=== PATIENT | female | born 1950 ===

== ENCOUNTER 2023-02-28 14:18 | Inpatient (IN) | payer MEDICARE, SELFPAY ==
[2023-02-28 14:30] VITALS: BP 123/78; PULSE 72; TEMP 36.7; O2SAT 98
--- NOTE | 2023-02-28 18:40 | PC.ADMIT ---
pt is a 72 year old female who presented to [facility] with paranoia and delusions. pt has a PMH of anxiety, depressive disorder cataracts, hypothyroidism, corneal dystophy, Alzheimer disease,and IBS. during admission,pt signed a CV. pt began starting saying delusional statements, saying people are following her and people want to kill her. pt reported she should be . pt was unable to be redirected from those delusions and did not sign any other legals or answer many questions about her health. pt has been eating meals and is willing to take certain meds.pt is ambulating without help, but needs some help standing up. start treatment plan and promote safety.
--- NOTE | 2023-02-28 20:56 | P.CONHOSP_ITS ---
History of Present Illness Data of Consult Service Date: 02/28/23 Requesting physician: Johny Rice Primary Care Provider: Unknown Physician HPI Reason for consult: medical H&P 72-year-old female with history of hypertension, irritable bowel syndrome, hyperlipidemia, history of thyroid cancer s/p thyroidectomy with postoperative hypothyroidism, endothelial corneal dystrophy, and cataracts admitted to Psychiatry from [facility] with consult placed to hospitalist service for medical H and P. She has no complaints at this time but is asking for a sleep aid. She denies any alcohol use, cigarette smoking, or illicit drug use. Review of Systems Review of Systems: General: No fevers, malaise, unintentional weight loss HEENT: No blurred vision, diplopia. No sore throat, nasal congestion, rhinorrhea, sinus pain, ear pain Cardiovascular: No chest pain, palpitations, or leg edema Respiratory: No shortness of breath, wheezing, cough GI: No abdominal pain, nausea, vomiting, diarrhea, constipation, melena, hematochezia : No dysuria, hematuria, increased urinary frequency, decreased urinary output MSK: No myalgia, back pain Neuro: No headaches, weakness, paresthesias Skin: No rashes or lesions [facility] Medical History Cataracts, bilateral Endothelial corneal dystrophy History of thyroid cancer Hyperlipidemia Hypertension Irritable bowel syndrome Postoperative hypothyroidism Surgical History S/P thyroidectomy Social History Household Members: Family Housing: House Do you presently have visiting nurse or other home services: No Patient Tobacco Use Status: Never used Tobacco Use of substances other than those prescribed or required for medical reasons: No Have you been hit, kicked, punched, or otherwise hurt by someone within the past year? If so, by whom?: No Do you feel safe in your current relationship?: Yes Is there a partner from a previous relationship who is making you feel unsafe now?: No Are you made to feel afraid or neglected: Yes Advance Directives: No Advance Directives Information Provided: Yes Do you have thoughts of harming others: None Do you have a plan to hurt others: No Plan Recently lost weight without trying: No How much weight loss: Not applicable Eating poorly because of decreased appetite: No Nutrition screen score: 0 Nutrition Risks: No Nutritional Risk Patient : No : No Poor oral hygiene: No Meds Allergies Allergy/AdvReac Type Severity Reaction Status Date / Time No Known Allergies Allergy Verified 02/28/23 14:57 Active Medications: Current Medications Acetaminophen (Acetaminophen 325 Mg Tablet) 650 mg PO Q6H PRN PRN Reason: Headache/Pain Mild Scale (1-3) Al Hydroxide/Mg Hydroxide (Magnesium Hydrox/Alum Hydrox 30 Ml Oral.Susp) 30 ml PO Q6H PRN PRN Reason: Heartburn/Nausea Clonazepam (Clonazepam 0.5 Mg Tablet) 0.5 mg PO BID MANDO Hydrochlorothiazide (Hydrochlorothiazide 25 Mg Tablet) 25 mg PO DAILY [facility]; Protocol Hydroxyzine HCl (Hydroxyzine Hcl 25 Mg Tablet) 25 mg PO Q6H PRN PRN Reason: Anxiety Levothyroxine Sodium (Levothyroxine Sodium 112 Mcg Tablet) 112 mcg PO DAILY@0600 MANDO Magnesium Hydroxide (Milk Of Magnesia 30 Ml Oral.Susp) 30 ml PO DAILY PRN PRN Reason: Constipation Quetiapine Fumarate (Quetiapine Fumarate 100 Mg Tablet) 100 mg PO BEDTIME MANDO Sertraline HCl (Sertraline Hcl 100 Mg Tablet) 200 mg PO DAILY [facility] Trazodone HCl (Trazodone Hcl 50 Mg Tablet) 50 mg PO BEDTIME MRX1 PRN PRN Reason: Insomnia Valsartan (Valsartan 160 Mg Tablet) 160 mg PO DAILY [facility]; Protocol Vitamin D (Cholecalciferol (Vitamin D3) 25 Mcg Tablet) 25 mcg PO DAILY [facility] Home Medications Medication Instructions Recorded Confirmed Last Taken Type aripiprazole 5 mg tablet 5 mg PO BEDTIME 02/28/23 02/28/23 Unknown History bromfenac 0.07 % eye drops 1 drp ophthalmic (eye) DAILY 02/28/23 02/28/23 Unknown History (Prolensa) cholecalciferol (vitamin D3) 25 25 mcg PO DAILY 02/28/23 02/28/23 Unknown History mcg (1,000 unit) tablet (Vitamin D3) clonazepam 0.5 mg tablet (Klonopin) 0.5 mg PO BID 02/28/23 02/28/23 Unknown History hydrochlorothiazide 25 mg tablet 25 mg PO DAILY 02/28/23 02/28/23 Unknown History levothyroxine 112 mcg tablet 112 mcg PO DAILY 02/28/23 02/28/23 Unknown History lithium carbonate 300 mg 600 mg PO BEDTIME 02/28/23 02/28/23 Unknown History tablet,extended release meloxicam 15 mg tablet 15 mg PO DAILY 02/28/23 02/28/23 Unknown History moxifloxacin 0.5 % eye drops 1 drp ophthalmic-Right TID 02/28/23 02/28/23 Unknown History pravastatin 10 mg tablet 10 mg PO DAILY 02/28/23 02/28/23 Unknown History quetiapine 100 mg tablet 100 mg PO BEDTIME 02/28/23 02/28/23 Unknown History sertraline 100 mg tablet 150 mg PO DAILY 02/28/23 02/28/23 Unknown History sertraline 50 mg tablet 50 mg PO QAM 02/28/23 02/28/23 Unknown History trazodone 50 mg tablet 50 - 100 mg PO BEDTIME 02/28/23 02/28/23 Unknown History valsartan 160 1 tab PO DAILY 02/28/23 02/28/23 Unknown History mg-hydrochlorothiazide 25 mg tablet Physical Exam Vital Signs and Narrative: Vital Signs: Last Vital Signs Temp 98.1 F 02/28/23 14:30 Pulse 72 02/28/23 14:30 BP 123/78 02/28/23 14:30 Pulse Ox 98 02/28/23 14:30 O2 Del Method Room Air 02/28/23 14:30 Constitutional - Awake and Alert, No apparent distress Eyes - PERRLA, EOMI Cardiovascular - S1S2, RRR, No edema Respiratory - Normal lung expansion, Normal respiratory effort, No respiratory distress, CTA bilaterally Gastrointestinal - NT / ND; +BS; No rebound or guarding Extremities - no calf tenderness bilaterally, no swelling Skin - Warm/Dry Neurological - Alert & oriented x3, CN II-XII in tact, 5/5 strength BUE and BLE Psychological - Appropriate affect Assessment and Plan (1) Routine medical exam: Status: Acute Plan 72-year-old female with history of hypertension, irritable bowel syndrome, hyperlipidemia, history of thyroid cancer s/p thyroidectomy with postoperative hypothyroidism, endothelial corneal dystrophy, and cataracts admitted to Psychiatry from [facility] ED with consult placed to hospitalist service for medical H and P. #Mood disorder -plan per psychiatry #HTN -continue home meds # hyperlipidemia -continue statin # endothelial corneal dystrophy -continue eyedrops Reviewed chart from [facility]. Hematology studies, chemistries, urinalysis unremarkable Thank you for allowing me to participate in this consult. Signing off at this time. Please do not hesitate to call for further questions. Time Spent With Patient Time: Total time managing care of this patient today ____ minutes.
[2023-02-28] MEDS: QUEtiapine Fumarate 100 MG TABLET PO (21:18)
[2023-02-28] MEDS: clonazePAM 0.5 MG TABLET PO (21:18)
[2023-03-01] MEDS: Levothyroxine Sodium 112 MCG TABLET PO (06:02)
[2023-03-01 08:10] VITALS: BP 113/67; PULSE 79; RESP 20; TEMP 36.1; O2SAT 96
[2023-03-01] MEDS: Valsartan 160 MG TABLET PO (08:13)
[2023-03-01] MEDS: Cholecalciferol (Vitamin D3) 25 MCG TABLET PO (08:13)
[2023-03-01] MEDS: hydroCHLOROthiazide 25 MG TABLET PO (08:15)
[2023-03-01] MEDS: Sertraline HCL 100 MG TABLET 200 MG PO (08:16)
[2023-03-01 08:43] LABS: Alanine Aminotransferase 33 U/L (0-31); Albumin Level 4.2 g/dL (3.5-5.0); Alkaline Phosphatase 123 U/L (39-117); Anion Gap 11 (12-20); Aspartate Amino Transferase 21 U/L (5-31); Bilirubin Total 0.5 mg/dL (0.0-1.0); Blood Urea Nitrogen 24 mg/dL (9-16); Calcium 9.6 mg/dL (8.4-10.2); Carbon Dioxide 27 mmol/L (22-29); Chloride 107 mmol/L (96-108); Cholesterol 143 mg/dL (<200); Estimated Glomerular Filt Rate > 60; Glucose Fasting 83 mg/dL (60-99); HDL Cholesterol 53 mg/dL (>40); LDL Cholesterol Calculated 72 mg/dL (<100); Potassium 3.2 mmol/L (3.3-5.1); Sodium 142 mmol/L (135-145); Total Protein 6.8 g/dL (6.5-8.0); Triglycerides 90 mg/dL (<150)
[2023-03-01] MEDS: Pravastatin Sodium 10 MG TABLET PO (10:05)
--- NOTE | 2023-03-01 14:19 | P.HPPS_ITS ---
HPI Date of Service: 03/01/23 Chief Complaint: Paranoia Sources of Information: patient interviewed, chart reviewed and crisis/core team assessment reviewed HPI Subjective Notes: Yeh Warning Narrative: The patient is a 72-year-old female, , living with her , referred from [facility] for continuation of care in inpatient psychiatric unit. According to the crisis assessment, the patient suffers from major depressive disorder and she was previously admitted on 2009 for exacerbation of depression. According to her 's report, she have not have any psychiatric services recently since she moved to this part of the [facility]. Since September or October of 2022, her behavior has worsen it with increased paranoia, bizarre delusions, stating that she has to go to the police and confessed her crimes, visual hallucinations and disorganized behavior. She also admitted depressive symptoms elicited by depressed mood, anhedonia, lack of energy, feelings of hopelessness and suicidal ideation. The medical workout was done at [facility] that include a CT scan and an MRI that sh owed U neural parenchyma deficit mostly on the temporal and parietal areas. No medical reasons for dementia. On interview, the patient was a very poor historian, she was unable to provide full details but apparently she admitted exacerbation of depression elicited by depressed mood anhedonia lack of energy and passive suicidal ideation. Even though she was able to contract for safety in the facility. She denies visual hallucinations but she verbalized bizarre delusions and persecutory delusions. Later, she was interviewed with her who provided additional information, confirming the worsening of depression, cognition and psychosis. Past Psychiatric History: There is a report of a prior admission in 2009 for depressive symptoms. No outpatient psychiatric follow-up, she lost her provider in 2019. Medical Evaluation Reviewed: Yes [facility] Medical History Cataracts, bilateral Endothelial corneal dystrophy History of thyroid cancer Hyperlipidemia Hypertension Irritable bowel syndrome Postoperative hypothyroidism Surgical History S/P thyroidectomy Family History: Denies Social History: Retired, she lives with her , she has good social support Substance History: Denies Trauma History: Denies Diagnostics Vital Signs (24Hr): Vital Signs - 24 hr 02/28/23 14:30 03/01/23 08:10 Temperature 98.1 F 97.0 F Pulse Rate 72 79 Respiratory Rate 20 Blood Pressure 123/78 113/67 Pulse Oximetry 98 96 Oxygen Delivery Method Room Air Room Air Labs 03/01/23 07:59 Labs: Laboratory Results - last 48 hr 03/01/23 07:59 Sodium 142 Potassium 3.2 L Chloride 107 Carbon Dioxide 27 Anion Gap 11 L BUN 24 H Creatinine 0.84 Estim Creat Clear Calc TNP Estimated GFR > 60 Fasting Glucose 83 Calcium 9.6 Total Bilirubin 0.5 AST 21 ALT 33 H Alkaline Phosphatase 123 H Total Protein 6.8 Albumin 4.2 Triglycerides 90 Cholesterol 143 LDL Cholesterol, Calc 72 HDL Cholesterol 53 Meds/Allergies Meds Home Medications Medication Instructions Recorded Confirmed Type aripiprazole 5 mg tablet 5 mg PO BEDTIME 02/28/23 02/28/23 History cholecalciferol (vitamin D3) 25 25 mcg PO DAILY 02/28/23 02/28/23 History mcg (1,000 unit) tablet (Vitamin D3) clonazepam 0.5 mg tablet (Klonopin) 0.5 mg PO BID 02/28/23 02/28/23 History hydrochlorothiazide 25 mg tablet 25 mg PO DAILY 02/28/23 02/28/23 History levothyroxine 112 mcg tablet 112 mcg PO DAILY 02/28/23 02/28/23 History lithium carbonate 300 mg 600 mg PO BEDTIME 02/28/23 02/28/23 History tablet,extended release meloxicam 15 mg tablet 15 mg PO DAILY 02/28/23 02/28/23 History moxifloxacin 0.5 % eye drops 1 drp ophthalmic-Right TID 02/28/23 02/28/23 History pravastatin 10 mg tablet 10 mg PO DAILY 02/28/23 02/28/23 History quetiapine 100 mg tablet 100 mg PO BEDTIME 02/28/23 02/28/23 History sertraline 100 mg tablet 150 mg PO DAILY 02/28/23 02/28/23 History sertraline 50 mg tablet 50 mg PO QAM 02/28/23 02/28/23 History trazodone 50 mg tablet 50 - 100 mg PO BEDTIME 02/28/23 02/28/23 History valsartan 160 1 tab PO DAILY 02/28/23 02/28/23 History mg-hydrochlorothiazide 25 mg tablet Allergies Allergies Allergy/AdvReac Type Severity Reaction Status Date / Time No Known Allergies Allergy Verified 02/28/23 14:57 Mental Status Exam Mental Status Exam Patient Appearance: Appropriate Patient Orientation: Person Level of Consciousness: Awake and Appropriate Patient Behavior: Guarded and Passive Mood Description: Calm Affect Description: Constricted Patient Cognition Impaired: Yes Ability to Follow Directions: Good Speech Pattern: Clear Hallucinations: None Delusions: Paranoid Ideation, Ideas of Reference and Bizarre Thought Process: Distracted and Slowed Thinking Thought Content: positive for [place] and positive for Poverty of Content Judgement: Poor Assessment & Plan Assessment & Plan (1) Dementia: Status: Acute Code(s): F03.90 - Unspecified dementia, unspecified severity, without behavioral disturbance, psychotic disturbance, mood disturbance, and anxiety (2) Major depressive disorder: Status: Acute Code(s): F32.9 - Major depressive disorder, single episode, unspecified Plan The patient is an elderly female, , with a prior history of major depressive disorder and dementia who was brought into the facility transfer from the emergency room of [facility] due to bizarre delusions, persecutory delusions and worsening of her depression since she has lost her provider. She she also has several medical comorbidities such as arthritis, cataracts, thyroid issues, hyperlipidemia and high blood pressure. Plan 1. Gather collateral information. 2. Continue with regular medications. 3. Medical workout. 4. Reassessment results. 5. 5 minutes checks. Patient educated on: diagnosis Informed Consent: further education needed Reason for continued inpatient stay Substantial Risk for: inability to function, rapid decompensation and med/psych decompensation Statement Statement: I have reviewed the history and physical and performed a pertinent examination on my patient. No changes have occurred unless specified. If the History and Physical was not performed prior to admission, the Hospitalist's service will be consulted for completing the admission physical. Time Spent With Patient Time: Total time managing care of this patient today __45__ minutes.
[2023-03-01 19:40] VITALS: BP 123/62; PULSE 74; RESP 16; TEMP 36.5; O2SAT 97
[2023-03-01] MEDS: clonazePAM 0.5 MG TABLET PO (21:25)
[2023-03-01] MEDS: traZODone HCL 50 MG TABLET PO (21:25)
[2023-03-01] MEDS: QUEtiapine Fumarate 100 MG TABLET PO (21:25)
[2023-03-02 06:00] VITALS: BP 116/68; PULSE 61; RESP 18; TEMP 36.8; O2SAT 96
[2023-03-02] MEDS: Levothyroxine Sodium 112 MCG TABLET PO (06:22)
[2023-03-02 07:00] VITALS: BMI 29.9
[2023-03-02] MEDS: Valsartan 160 MG TABLET PO (10:33)
[2023-03-02] MEDS: hydroCHLOROthiazide 25 MG TABLET PO (10:33)
[2023-03-02] MEDS: Sertraline HCL 100 MG TABLET 200 MG PO (10:33)
[2023-03-02] MEDS: Pravastatin Sodium 10 MG TABLET PO (10:33)
[2023-03-02] MEDS: Cholecalciferol (Vitamin D3) 25 MCG TABLET PO (10:34)
--- NOTE | 2023-03-02 11:30 | HO.PSYCHPN ---
Subjective Subjective Date of Service: 03/02/23 Reason For Visit: Paranoia Subjective Notes: Conditional Voluntary Interim History: The nursing staff reported the patient has been isolative, anxious she scored 7/10. She denies active suicidal ideation. The nursing staff reported that she refused her Klonopin but last night stating that she takes only at night. The community mental health social worker spoke with the and I interview him yesterday. We gather collateral information regarding her prior treatment. The occupational therapist reported that she has court [place] and her [place] test was 3.6. On interview I explained her that she was initially titrated up to 200 mg of Zoloft at [facility]. We discussed treatment options Mental Status Exam Mental Status Exam Patient Appearance: Well Grooomed and Appropriate Patient Orientation: Person and Situation Level of Consciousness: Awake and Appropriate Patient Behavior: Guarded and Passive Mood Description: Calm and Withdrawn Affect Description: Constricted Patient Cognition Impaired: Yes Ability to Follow Directions: Good Speech Pattern: Clear Hallucinations: None Delusions: Not Present Thought Process: Distracted and Slowed Thinking Thought Content: positive for [place] and positive for Poverty of Content Judgement: Fair Diagnostics Vital Signs (24Hr): Vital Signs - 24 hr 03/01/23 19:40 03/02/23 06:00 Temperature 97.7 F 98.3 F Pulse Rate 74 61 Respiratory Rate 16 18 Blood Pressure 123/62 116/68 Pulse Oximetry 97 96 Oxygen Delivery Method Room Air Room Air Labs 03/01/23 07:59 Labs: Laboratory Results - last 48 hr 03/01/23 07:59 Sodium 142 Potassium 3.2 L Chloride 107 Carbon Dioxide 27 Anion Gap 11 L BUN 24 H Creatinine 0.84 Estim Creat Clear Calc TNP Estimated GFR > 60 Fasting Glucose 83 Calcium 9.6 Total Bilirubin 0.5 AST 21 ALT 33 H Alkaline Phosphatase 123 H Total Protein 6.8 Albumin 4.2 Triglycerides 90 Cholesterol 143 LDL Cholesterol, Calc 72 HDL Cholesterol 53 Medications Medications Current Medications Acetaminophen (Acetaminophen 325 Mg Tablet) 650 mg PO Q6H PRN PRN Reason: Headache/Pain Mild Scale (1-3) Al Hydroxide/Mg Hydroxide (Magnesium Hydrox/Alum Hydrox 30 Ml Oral.Susp) 30 ml PO Q6H PRN PRN Reason: Heartburn/Nausea Clonazepam (Clonazepam 0.5 Mg Tablet) 0.5 mg PO BEDTIME MANDO Hydrochlorothiazide (Hydrochlorothiazide 25 Mg Tablet) 25 mg PO DAILY [facility]; Protocol Last Admin: 03/02/23 10:33 Dose: 25 mg Hydroxyzine HCl (Hydroxyzine Hcl 25 Mg Tablet) 25 mg PO Q6H PRN PRN Reason: Anxiety Levothyroxine Sodium (Levothyroxine Sodium 112 Mcg Tablet) 112 mcg PO DAILY@0600 [facility] Last Admin: 03/02/23 06:22 Dose: 112 mcg Magnesium Hydroxide (Milk Of Magnesia 30 Ml Oral.Susp) 30 ml PO DAILY PRN PRN Reason: Constipation Pravastatin Sodium (Pravastatin Sodium 10 Mg Tablet) 10 mg PO DAILY [facility] Last Admin: 03/02/23 10:33 Dose: 10 mg Quetiapine Fumarate (Quetiapine Fumarate 100 Mg Tablet) 100 mg PO BEDTIME [facility] Last Admin: 03/01/23 21:25 Dose: 100 mg Sertraline HCl (Sertraline Hcl 100 Mg Tablet) 200 mg PO DAILY [facility] Last Admin: 03/02/23 10:33 Dose: 200 mg Trazodone HCl (Trazodone Hcl 50 Mg Tablet) 50 mg PO BEDTIME MRX1 PRN PRN Reason: Insomnia Last Admin: 03/01/23 21:25 Dose: 50 mg Valsartan (Valsartan 160 Mg Tablet) 160 mg PO DAILY [facility]; Protocol Last Admin: 03/02/23 10:33 Dose: 160 mg Vitamin D (Cholecalciferol (Vitamin D3) 25 Mcg Tablet) 25 mcg PO DAILY [facility] Last Admin: 03/02/23 10:34 Dose: 25 mcg Allergies Allergies Allergy/AdvReac Type Severity Reaction Status Date / Time No Known Allergies Allergy Verified 02/28/23 14:57 Assessment & Plan Assessment & Plan (1) Dementia: Status: Acute Code(s): F03.90 - Unspecified dementia, unspecified severity, without behavioral disturbance, psychotic disturbance, mood disturbance, and anxiety (2) Major depressive disorder: Status: Acute Code(s): F32.9 - Major depressive disorder, single episode, unspecified Plan The patient is an elderly female, , with a prior history of major depressive disorder and dementia who was brought into the facility transfer from the emergency room of [facility] due to bizarre delusions, persecutory delusions and worsening of her depression since she has lost her provider. She she also has several medical comorbidities such as arthritis, cataracts, thyroid issues, hyperlipidemia and high blood pressure. Plan 1. Gather collateral information. 2. Continue with regular medications. 3. Medical workout. 4. Reassessment results. 5. 5 minutes checks. Reason for continued inpatient stay Substantial Risk for: inability to function, rapid decompensation and med/psych decompensation Time Spent With Patient Time: Total time managing care of this patient today _20___ minutes.
[2023-03-02] MEDS: Acetaminophen 325 MG TABLET 650 MG PO (17:33)
[2023-03-02 20:00] VITALS: BP 112/57; PULSE 62; RESP 20; TEMP 36.6; O2SAT 96
[2023-03-02] MEDS: QUEtiapine Fumarate 100 MG TABLET PO (20:36)
[2023-03-02] MEDS: clonazePAM 0.5 MG TABLET PO (20:36)
[2023-03-03] MEDS: Levothyroxine Sodium 112 MCG TABLET PO (06:45)
[2023-03-03 08:50] VITALS: BP 116/56; PULSE 85; RESP 18; TEMP 36.4; O2SAT 97
[2023-03-03] MEDS: Cholecalciferol (Vitamin D3) 25 MCG TABLET PO (09:08)
[2023-03-03] MEDS: Sertraline HCL 100 MG TABLET 200 MG PO (09:08)
[2023-03-03] MEDS: Pravastatin Sodium 10 MG TABLET PO (09:08)
[2023-03-03] MEDS: hydrOXYzine HCL 25 MG TABLET PO (09:11)
--- NOTE | 2023-03-03 09:39 | PC.NURSE ---
BP 115/56, Nori was asymptomatic. Dr. Rice notified and 0900 Valsartan and HCTZ held per MD Rice.
--- NOTE | 2023-03-03 09:43 | PC.NURSE ---
MD Rice notified of potassium level 3.2 on 03/01. No intervention ordered at this time.
--- NOTE | 2023-03-03 12:16 | P.PNPSI_ITS ---
Subjective Subjective Date of Service: 03/03/23 Reason For Visit: Paranoia Subjective Notes: Conditional Voluntary Interim History: The nursing staff reported the patient had been paranoid regarding her medications. She slept 8 hours. The high school social studies teacher reported that she does not have priors the community and it is going to be difficult to find providers. On interview the patient remains depressed most of the time on her bed. We will continue Zoloft 200 mg p.o. daily to target depression Mental Status Exam Mental Status Exam Patient Appearance: Well Grooomed and Appropriate Patient Orientation: Person and Situation Level of Consciousness: Awake and Appropriate Patient Behavior: Guarded and Passive Mood Description: Withdrawn Affect Description: Constricted Patient Cognition Impaired: Yes Ability to Follow Directions: Good Speech Pattern: Clear Hallucinations: None Delusions: Paranoid Ideation Thought Process: Distracted Thought Content: positive for [place] and positive for Poverty of Content Judgement: Fair Diagnostics Vital Signs (24Hr): Vital Signs - 24 hr 03/02/23 20:00 03/03/23 08:50 Temperature 97.8 F 97.5 F Pulse Rate 62 85 Respiratory Rate 20 18 Blood Pressure 112/57 L 116/56 L Pulse Oximetry 96 97 Oxygen Delivery Method Room Air Room Air BMI result Body Mass Index 29.9 Labs 03/01/23 07:59 Medications Medications Current Medications Acetaminophen (Acetaminophen 325 Mg Tablet) 650 mg PO Q6H PRN PRN Reason: Headache/Pain Mild Scale (1-3) Last Admin: 03/02/23 17:33 Dose: 650 mg Al Hydroxide/Mg Hydroxide (Magnesium Hydrox/Alum Hydrox 30 Ml Oral.Susp) 30 ml PO Q6H PRN PRN Reason: Heartburn/Nausea Clonazepam (Clonazepam 0.5 Mg Tablet) 0.5 mg PO BEDTIME [facility] Last Admin: 03/02/23 20:36 Dose: 0.5 mg Hydrochlorothiazide (Hydrochlorothiazide 25 Mg Tablet) 25 mg PO DAILY [facility]; Prot ocol Last Admin: 03/03/23 09:38 Dose: Not Given Hydroxyzine HCl (Hydroxyzine Hcl 25 Mg Tablet) 25 mg PO Q6H PRN PRN Reason: Anxiety Last Admin: 03/03/23 09:11 Dose: 25 mg Levothyroxine Sodium (Levothyroxine Sodium 112 Mcg Tablet) 112 mcg PO DAILY@0600 [facility] Last Admin: 03/03/23 06:45 Dose: 112 mcg Magnesium Hydroxide (Milk Of Magnesia 30 Ml Oral.Susp) 30 ml PO DAILY PRN PRN Reason: Constipation Pravastatin Sodium (Pravastatin Sodium 10 Mg Tablet) 10 mg PO DAILY [facility] Last Admin: 03/03/23 09:08 Dose: 10 mg Quetiapine Fumarate (Quetiapine Fumarate 100 Mg Tablet) 100 mg PO BEDTIME [facility] Last Admin: 03/02/23 20:36 Dose: 100 mg Sertraline HCl (Sertraline Hcl 100 Mg Tablet) 200 mg PO DAILY [facility] Last Admin: 03/03/23 09:08 Dose: 200 mg Trazodone HCl (Trazodone Hcl 50 Mg Tablet) 50 mg PO BEDTIME MRX1 PRN PRN Reason: Insomnia Last Admin: 03/01/23 21:25 Dose: 50 mg Valsartan (Valsartan 160 Mg Tablet) 160 mg PO DAILY [facility]; Protocol Last Admin: 03/03/23 09:39 Dose: Not Given Vitamin D (Cholecalciferol (Vitamin D3) 25 Mcg Tablet) 25 mcg PO DAILY [facility] Last Admin: 03/03/23 09:08 Dose: 25 mcg Allergies Allergies Allergy/AdvReac Type Severity Reaction Status Date / Time No Known Allergies Allergy Verified 02/28/23 14:57 Assessment & Plan Assessment & Plan (1) Dementia: Status: Acute Code(s): F03.90 - Unspecified dementia, unspecified severity, without behavioral disturbance, psychotic disturbance, mood disturbance, and anxiety (2) Major depressive disorder: Status: Acute Code(s): F32.9 - Major depressive disorder, single episode, unspecified Plan The patient is an elderly female, , with a prior history of major depressive disorder and dementia who was brought into the facility transfer from the emergency room of [facility] due to bizarre delusions, persecutory delusions and worsening of her depression since she has lost her provider. She she also has several medical comorbidities such as arthritis, cataracts, thyroid issues, hyperlipidemia and high blood pressure. Plan 1. Gather collateral information. 2. Continue with regular medications. 3. Medical workout. 4. Reassessment results. 5. 5 minutes checks. Reason for continued inpatient stay Substantial Risk for: inability to function, rapid decompensation and med/psych decompensation Time Spent With Patient Time: Total time managing care of this patient today __20__ minutes.
[2023-03-03 18:00] VITALS: BP 117/58; PULSE 62; RESP 18; TEMP 36.3; O2SAT 99
[2023-03-03] MEDS: clonazePAM 0.5 MG TABLET PO (20:16)
[2023-03-03] MEDS: QUEtiapine Fumarate 100 MG TABLET PO (20:16)
[2023-03-03] MEDS: traZODone HCL 50 MG TABLET PO (20:21)
[2023-03-04] MEDS: Levothyroxine Sodium 112 MCG TABLET PO (06:52)
[2023-03-04 08:05] VITALS: BP 107/63; PULSE 71; RESP 18; TEMP 36.1; O2SAT 96
[2023-03-04] MEDS: Sertraline HCL 100 MG TABLET 200 MG PO (09:00)
[2023-03-04] MEDS: Pravastatin Sodium 10 MG TABLET PO (09:01)
[2023-03-04] MEDS: Valsartan 160 MG TABLET PO (09:01)
[2023-03-04] MEDS: Cholecalciferol (Vitamin D3) 25 MCG TABLET PO (09:01)
[2023-03-04] MEDS: hydroCHLOROthiazide 25 MG TABLET PO (09:02)
--- NOTE | 2023-03-04 10:50 | HO.PSYCHPN ---
Subjective Subjective Date of Service: 03/04/23 Reason For Visit: Paranoia Interim History: Patient reports she has been feeling better since admission. She is alert and oriented. She enjoyed visit from from the [facility] and her sons visited from [place]. She is a bit more engaged in the milieu. We will continue Zoloft 200 mg p.o. daily to target depression. Denies SI. Review of Systems Review of Systems General: No fevers, malaise, unintentional weight loss HEENT: No blurred vision, diplopia. No sore throat, nasal congestion, rhinorrhea, sinus pain, ear pain Cardiovascular: No chest pain, palpitations, or leg edema Respiratory: No shortness of breath, wheezing, cough GI: No abdominal pain, nausea, vomiting, diarrhea, constipation, melena, hematochezia : No dysuria, hematuria, increased urinary frequency, decreased urinary output MSK: No myalgia, back pain Neuro: No headaches, weakness, paresthesias Skin: No rashes or lesions Yes Unobtainable due to mental status Mental Status Exam Mental Status Exam Patient Appearance: Well Grooomed and Appropriate Patient Orientation: Person and Situation Level of Consciousness: Awake and Appropriate Patient Behavior: Guarded and Passive Mood Description: Withdrawn Affect Description: Constricted Patient Cognition Impaired: Yes Ability to Follow Directions: Good Speech Pattern: Clear Diagnostics Vital Signs (24Hr): Vital Signs - 24 hr 03/03/23 18:00 03/04/23 08:05 Temperature 97.3 F 96.9 F Pulse Rate 62 71 Respiratory Rate 18 18 Blood Pressure 117/58 L 107/63 Pulse Oximetry 99 96 Oxygen Delivery Method Room Air Room Air BMI result Body Mass Index 29.9 Labs 03/01/23 07:59 Medications Medications Current Medications Acetaminophen (Acetaminophen 325 Mg Tablet) 650 mg PO Q6H PRN PRN Reason: Headache/Pain Mild Scale (1-3) Last Admin: 03/02/23 17:33 Dose: 650 mg Al Hydroxide/Mg Hydroxide (Magnesium Hydrox/Alum Hydrox 30 Ml Oral.Susp) 30 ml PO Q6H PRN PRN Reason: Heartburn/Nausea Clonazepam (Clonazepam 0.5 Mg Tablet) 0.5 mg PO BEDTIME [facility] Last Admin: 03/03/23 20:16 Dose: 0.5 mg Hydrochlorothiazide (Hydrochlorothiazide 25 Mg Tablet) 25 mg PO DAILY [facility]; Protocol Last Admin: 03/04/23 09:02 Dose: 25 mg Hydroxyzine HCl (Hydroxyzine Hcl 25 Mg Tablet) 25 mg PO Q6H PRN PRN Reason: Anxiety Last Admin: 03/03/23 09:11 Dose: 25 mg Levothyroxine Sodium (Levothyroxine Sodium 112 Mcg Tablet) 112 mcg PO DAILY@0600 [facility] Last Admin: 03/04/23 06:52 Dose: 112 mcg Magnesium Hydroxide (Milk Of Magnesia 30 Ml Oral.Susp) 30 ml PO DAILY PRN PRN Reason: Constipation Pravastatin Sodium (Pravastatin Sodium 10 Mg Tablet) 10 mg PO DAILY [facility] Last Admin: 03/04/23 09:01 Dose: 10 mg Quetiapine Fumarate (Quetiapine Fumarate 100 Mg Tablet) 100 mg PO BEDTIME [facility] Last Admin: 03/03/23 20:16 Dose: 100 mg Sertraline HCl (Sertraline Hcl 100 Mg Tablet) 200 mg PO DAILY [facility] Last Admin: 03/04/23 09:00 Dose: 200 mg Trazodone HCl (Trazodone Hcl 50 Mg Tablet) 50 mg PO BEDTIME MRX1 PRN PRN Reason: Insomnia Last Admin: 03/03/23 20:21 Dose: 50 mg Valsartan (Valsartan 160 Mg Tablet) 160 mg PO DAILY [facility]; Protocol Last Admin: 03/04/23 09:01 Dose: 160 mg Vitamin D (Cholecalciferol (Vitamin D3) 25 Mcg Tablet) 25 mcg PO DAILY [facility] Last Admin: 03/04/23 09:01 Dose: 25 mcg Allergies Allergies Allergy/AdvReac Type Severity Reaction Status Date / Time No Known Allergies Allergy Verified 02/28/23 14:57 Assessment & Plan Assessment & Plan (1) Dementia: Status: Acute Code(s): F03.90 - Unspecified dementia, unspecified severity, without behavioral disturbance, psychotic disturbance, mood disturbance, and anxiety (2) Major depressive disorder: Status: Acute Code(s): F32.9 - Major depressive disorder, single episode, unspecified Plan The patient is an elderly female, , with a prior history of major depressive disorder and dementia who was brought into the facility transfer from the emergency room of [facility] due to bizarre delusions, persecutory delusions and worsening of her depression since she has lost her provider. She she also has several medical comorbidities such as arthritis, cataracts, thyroid issues, hyperlipidemia and high blood pressure. Plan 1. Gather collateral information. 2. Continue with regular medications. 3. Medical workout. 4. Reassessment results. 5. 5 minutes checks. 03/04: Continue current treatment regimen. Reason for continued inpatient stay Substantial Risk for: inability to function and rapid decompensation Time Spent With Patient Time: Total time managing care of this patient today ____ minutes.
[2023-03-04] MEDS: Milk of Magnesia 30 ML ORAL.SUSP PO (13:13)
[2023-03-04] MEDS: hydrOXYzine HCL 25 MG TABLET PO (17:07)
[2023-03-04 18:00] VITALS: BP 116/67; PULSE 91; RESP 18; TEMP 36.2; O2SAT 98
[2023-03-04] MEDS: clonazePAM 0.5 MG TABLET PO (20:27)
[2023-03-04] MEDS: QUEtiapine Fumarate 100 MG TABLET PO (20:27)
[2023-03-04] MEDS: traZODone HCL 50 MG TABLET PO (22:52)
[2023-03-05] MEDS: Levothyroxine Sodium 112 MCG TABLET PO (06:39)
[2023-03-05 08:30] VITALS: BP 102/55; PULSE 62; RESP 16; TEMP 36.2; O2SAT 95
[2023-03-05] MEDS: Cholecalciferol (Vitamin D3) 25 MCG TABLET PO (08:53)
[2023-03-05] MEDS: Pravastatin Sodium 10 MG TABLET PO (08:53)
[2023-03-05] MEDS: Sertraline HCL 100 MG TABLET 200 MG PO (08:54)
--- NOTE | 2023-03-05 14:01 | HO.PSYCHPN ---
Subjective Subjective Date of Service: 03/05/23 Reason For Visit: Paranoia Interim History: Patient was very tearful today and depressed. She wants to go home to be taken care by her . Feels sad because he had to drive 4 1/2 hours to get here because of the [place] traffic. She says people here don't like her. She believes they make comments about her. Feels she is neglected by people here. Poor insight or guarded about how she ended up in the hospital. She is a bit more engaged in the milieu. We will continue Zoloft 200 mg p.o. daily to target depression. Denies SI. Review of Systems Review of Systems General: No fevers, malaise, unintentional weight loss HEENT: No blurred vision, diplopia. No sore throat, nasal congestion, rhinorrhea, sinus pain, ear pain Cardiovascular: No chest pain, palpitations, or leg edema Respiratory: No shortness of breath, wheezing, cough GI: No abdominal pain, nausea, vomiting, diarrhea, constipation, melena, hematochezia : No dysuria, hematuria, increased urinary frequency, decreased urinary output MSK: No myalgia, back pain Neuro: No headaches, weakness, paresthesias Skin: No rashes or lesions Yes Unobtainable due to mental status Mental Status Exam Mental Status Exam Patient Appearance: Well Grooomed and Appropriate Patient Orientation: Person and Situation Level of Consciousness: Awake and Appropriate Patient Behavior: Guarded and Passive Mood Description: Withdrawn Affect Description: Constricted Patient Cognition Impaired: Yes Ability to Follow Directions: Good Speech Pattern: Clear Delusions: Paranoid Ideation Diagnostics Vital Signs (24Hr): Vital Signs - 24 hr 03/04/23 18:00 03/05/23 08:30 Temperature 97.1 F 97.1 F Pulse Rate 91 62 Respiratory Rate 18 16 Blood Pressure 116/67 102/55 L Pulse Oximetry 98 95 Oxygen Delivery Method Room Air Room Air BMI result Body Mass Index 29.9 Labs 03/01/23 07:59 Medications Medications Current Medications Acetaminophen (Acetaminophen 325 Mg Tablet) 650 mg PO Q6H PRN PRN Reason: Headache/Pain Mild Scale (1-3) Last Admin: 03/02/23 17:33 Dose: 650 mg Al Hydroxide/Mg Hydroxide (Magnesium Hydrox/Alum Hydrox 30 Ml Oral.Susp) 30 ml PO Q6H PRN PRN Reason: Heartburn/Nausea Clonazepam (Clonazepam 0.5 Mg Tablet) 0.5 mg PO BEDTIME [facility] Last Admin: 03/04/23 20:27 Dose: 0.5 mg Hydrochlorothiazide (Hydrochlorothiazide 25 Mg Tablet) 25 mg PO DAILY [facility]; Protocol Last Admin: 03/05/23 09:00 Dose: Not Given Hydroxyzine HCl (Hydroxyzine Hcl 25 Mg Tablet) 25 mg PO Q6H PRN PRN Reason: Anxiety Last Admin: 03/04/23 17:07 Dose: 25 mg Levothyroxine Sodium (Levothyroxine Sodium 112 Mcg Tablet) 112 mcg PO DAILY@0600 [facility] Last Admin: 03/05/23 06:39 Dose: 112 mcg Magnesium Hydroxide (Milk Of Magnesia 30 Ml Oral.Susp) 30 ml PO DAILY PRN PRN Reason: Constipation Last Admin: 03/04/23 13:13 Dose: 30 ml Pravastatin Sodium (Pravastatin Sodium 10 Mg Tablet) 10 mg PO DAILY [facility] Last Admin: 03/05/23 08:53 Dose: 10 mg Quetiapine Fumarate (Quetiapine Fumarate 100 Mg Tablet) 100 mg PO BEDTIME [facility] Last Admin: 03/04/23 20:27 Dose: 100 mg Sertraline HCl (Sertraline Hcl 100 Mg Tablet) 200 mg PO DAILY [facility] Last Admin: 03/05/23 08:54 Dose: 200 mg Trazodone HCl (Trazodone Hcl 50 Mg Tablet) 50 mg PO BEDTIME MRX1 PRN PRN Reason: Insomnia Last Admin: 03/04/23 22:52 Dose: 50 mg Valsartan (Valsartan 160 Mg Tablet) 160 mg PO DAILY [facility]; Protocol Last Admin: 03/05/23 09:03 Dose: Not Given Vitamin D (Cholecalciferol (Vitamin D3) 25 Mcg Tablet) 25 mcg PO DAILY [facility] Last Admin: 03/05/23 08:53 Dose: 25 mcg Allergies Allergies Allergy/AdvReac Type Severity Reaction Status Date / Time No Known Allergies Allergy Verified 02/28/23 14:57 Assessment & Plan Assessment & Plan (1) Dementia: Status: Acute Code(s): F03.90 - Unspecified dementia, unspecified severity, without behavioral disturbance, psychotic disturbance, mood disturbance, and anxiety (2) Major depressive disorder: Status: Acute Code(s): F32.9 - Major depressive disorder, single episode, unspecified Plan The patient is an elderly female, , with a prior history of major depressive disorder and dementia who was brought into the facility transfer from the emergency room of [facility] due to bizarre delusions, persecutory delusions and worsening of her depression since she has lost her provider. She she also has several medical comorbidities such as arthritis, cataracts, thyroid issues, hyperlipidemia and high blood pressure. Plan 1. Gather collateral information. 2. Continue with regular medications. 3. Medical workout. 4. Reassessment results. 5. 5 minutes checks. 03/04: Continue current treatment regimen. 03/05: Continue plan of care. Could possibly benefit from antipsychotic like Abilify for paranoia and to augment antidepressants but reluctant saying those medications are very dangerous. Reason for continued inpatient stay Substantial Risk for: inability to function and rapid decompensation Time Spent With Patient Time: Total time managing care of this patient today ____ minutes.
[2023-03-05 18:00] VITALS: BP 131/65; PULSE 66; RESP 18; TEMP 36.5; O2SAT 99
[2023-03-05] MEDS: QUEtiapine Fumarate 100 MG TABLET PO (20:45)
[2023-03-05] MEDS: clonazePAM 0.5 MG TABLET PO (20:45)
[2023-03-06] MEDS: Levothyroxine Sodium 112 MCG TABLET PO (06:44)
[2023-03-06 08:25] VITALS: BP 112/67; PULSE 64; RESP 20; TEMP 36.1; O2SAT 99
[2023-03-06] MEDS: Pravastatin Sodium 10 MG TABLET PO (08:26)
[2023-03-06] MEDS: hydroCHLOROthiazide 25 MG TABLET PO (08:26)
[2023-03-06] MEDS: Sertraline HCL 100 MG TABLET 200 MG PO (08:26)
[2023-03-06] MEDS: Valsartan 160 MG TABLET PO (08:27)
[2023-03-06] MEDS: Cholecalciferol (Vitamin D3) 25 MCG TABLET PO (08:27)
--- NOTE | 2023-03-06 11:55 | P.PNPSI_ITS ---
Subjective Subjective Date of Service: 03/06/23 Reason For Visit: Paranoia Interim History: Pt reports her main concern is depression. She denies SI/HI. She reports sleeping well, which is confirmed by nursing report. She denies VH/AH. She is somewhat guarded but does not report overt delusional content as she was when she was home. Family meeting with to discussed finding of MOCA, ACL, MRI atrophy/microvascular changes in brain. Medication Compliance: Yes Review of Systems Review of Systems General: No fevers, malaise, unintentional weight loss HEENT: No blurred vision, diplopia. No sore throat, nasal congestion, rhinorrhea, sinus pain, ear pain Cardiovascular: No chest pain, palpitations, or leg edema Respiratory: No shortness of breath, wheezing, cough GI: No abdominal pain, nausea, vomiting, diarrhea, constipation, melena, hematochezia : No dysuria, hematuria, increased urinary frequency, decreased urinary output MSK: No myalgia, back pain Neuro: No headaches, weakness, paresthesias Skin: No rashes or lesions Yes Unobtainable due to mental status Mental Status Exam Mental Status Exam Patient Appearance: Well Grooomed and Appropriate Patient Orientation: Person and Situation Level of Consciousness: Awake and Appropriate Patient Behavior: Guarded and Passive Mood Description: Withdrawn Affect Description: Constricted Patient Cognition Impaired: Yes Ability to Follow Directions: Good Speech Pattern: Clear Diagnostics Vital Signs (24Hr): Vital Signs - 24 hr 03/05/23 18:00 Temperature 97.7 F Pulse Rate 66 Respiratory Rate 18 Blood Pressure 131/65 Pulse Oximetry 99 Oxygen Delivery Method Room Air BMI result Body Mass Index 29.9 Labs 03/01/23 07:59 Medications Medications Current Medications Acetaminophen (Acetaminophen 325 Mg Tablet) 650 mg PO Q6H PRN PRN Reason: Headache/Pain Mild Scale (1-3) Last Admin: 03/02/23 17:33 Dose: 650 mg Al Hydroxide/Mg Hydroxide (Magnesium Hydrox/Alum Hydrox 30 Ml Oral.Susp) 30 ml PO Q6H PRN PRN Reason: Heartburn/Nausea Clonazepam (Clonazepam 0.5 Mg Tablet) 0.5 mg PO BEDTIME [facility] Last Admin: 03/05/23 20:45 Dose: 0.5 mg Hydrochlorothiazide (Hydrochlorothiazide 25 Mg Tablet) 25 mg PO DAILY [facility]; Protocol Last Admin: 03/06/23 08:26 Dose: 25 mg Hydroxyzine HCl (Hydroxyzine Hcl 25 Mg Tablet) 25 mg PO Q6H PRN PRN Reason: Anxiety Last Admin: 03/04/23 17:07 Dose: 25 mg Levothyroxine Sodium (Levothyroxine Sodium 112 Mcg Tablet) 112 mcg PO DAILY@0600 [facility] Last Admin: 03/06/23 06:44 Dose: 112 mcg Magnesium Hydroxide (Milk Of Magnesia 30 Ml Oral.Susp) 30 ml PO DAILY PRN PRN Reason: Constipation Last Admin: 03/04/23 13:13 Dose: 30 ml Pravastatin Sodium (Pravastatin Sodium 10 Mg Tablet) 10 mg PO DAILY [facility] Last Admin: 03/06/23 08:26 Dose: 10 mg Quetiapine Fumarate (Quetiapine Fumarate 100 Mg Tablet) 100 mg PO BEDTIME [facility] Last Admin: 03/05/23 20:45 Dose: 100 mg Sertraline HCl (Sertraline Hcl 100 Mg Tablet) 200 mg PO DAILY [facility] Last Admin: 03/06/23 08:26 Dose: 200 mg Trazodone HCl (Trazodone Hcl 50 Mg Tablet) 50 mg PO BEDTIME MRX1 PRN PRN Reason: Insomnia Last Admin: 03/04/23 22:52 Dose: 50 mg Valsartan (Valsartan 160 Mg Tablet) 160 mg PO DAILY [facility]; Protocol Last Admin: 03/06/23 08:27 Dose: 160 mg Vitamin D (Cholecalciferol (Vitamin D3) 25 Mcg Tablet) 25 mcg PO DAILY [facility] Last Admin: 03/06/23 08:27 Dose: 25 mcg Allergies Allergies Allergy/AdvReac Type Severity Reaction Status Date / Time No Known Allergies Allergy Verified 02/28/23 14:57 Assessment & Plan Assessment & Plan (1) Major depressive disorder: Status: Acute Code(s): F32.9 - Major depressive disorder, single episode, unspecified (2) Dementia: Status: Acute Code(s): F03.90 - Unspecified dementia, unspecified severity, without behavioral disturbance, psychotic disturbance, mood disturbance, and anxiety Plan The patient is an elderly female, , with a prior history of major depressive disorder and dementia who was brought into the facility transfer from the emergency room of [facility] due to bizarre delusions, persecutory delusions and worsening of her depression since she has lost her provider. She she also has several medical comorbidities such as arthritis, cataracts, thyroid issues, hyperlipidemia and high blood pressure. Plan 1. Gather collateral information. 2. Continue with regular medications. 3. Medical workout. 4. Reassessment results. 5. 5 minutes checks. 03/04: Continue current treatment regimen. 03/05: Continue plan of care. Could possibly benefit from antipsychotic like Abilify for paranoia and to augment antidepressants but reluctant saying those medications are very dangerous. 03/06 continue current medications. continue to monitor. Reason for continued inpatient stay Substantial Risk for: inability to function Time Spent With Patient Time: Total time managing care of this patient today ____ minutes.
[2023-03-06 18:00] VITALS: BP 117/63; PULSE 73; RESP 16; TEMP 36.6; O2SAT 97
[2023-03-06] MEDS: clonazePAM 0.5 MG TABLET PO (20:27)
[2023-03-06] MEDS: QUEtiapine Fumarate 100 MG TABLET PO (20:28)
[2023-03-07] MEDS: Levothyroxine Sodium 112 MCG TABLET PO (06:00)
[2023-03-07 07:40] VITALS: BP 108/53; PULSE 70; RESP 18; TEMP 35.9; O2SAT 96
[2023-03-07] MEDS: Valsartan 160 MG TABLET PO (08:32)
[2023-03-07] MEDS: Pravastatin Sodium 10 MG TABLET PO (08:33)
[2023-03-07] MEDS: hydroCHLOROthiazide 25 MG TABLET PO (08:33)
[2023-03-07] MEDS: Sertraline HCL 100 MG TABLET 200 MG PO (08:33)
[2023-03-07] MEDS: Cholecalciferol (Vitamin D3) 25 MCG TABLET PO (08:34)
--- NOTE | 2023-03-07 16:33 | P.PNPSI_ITS ---
Subjective Subjective Date of Service: 03/07/23 Reason For Visit: Paranoia Subjective Notes: Conditional Voluntary Interim History: Pt reports feeling less depressed. She reports she thought people were on the [place] and states she now realizes this was not the case. She denied SI/HI. She denies VH/AH. She is sleeping and eating well. She has been visible on the unit, more social, less guarded. She has been taking medications as prescribed. Medication Compliance: Yes Side effects from medications: No Attending Groups: Yes Review of Systems Review of Systems General: No fevers, malaise, unintentional weight loss HEENT: No blurred vision, diplopia. No sore throat, nasal congestion, rhinorrhea, sinus pain, ear pain Cardiovascular: No chest pain, palpitations, or leg edema Respiratory: No shortness of breath, wheezing, cough GI: No abdominal pain, nausea, vomiting, diarrhea, constipation, melena, hematochezia : No dysuria, hematuria, increased urinary frequency, decreased urinary output MSK: No myalgia, back pain Neuro: No headaches, weakness, paresthesias Skin: No rashes or lesions Yes Unobtainable due to mental status Mental Status Exam Mental Status Exam Patient Appearance: Well Grooomed and Appropriate Patient Orientation: Person and Situation Level of Consciousness: Awake and Appropriate Patient Behavior: Guarded and Passive Mood Description: Withdrawn Affect Description: Constricted Patient Cognition Impaired: Yes Ability to Follow Directions: Good Speech Pattern: Clear Diagnostics Vital Signs (24Hr): Vital Signs - 24 hr 03/06/23 18:00 03/07/23 07:40 Temperature 97.9 F 96.6 F L Pulse Rate 73 70 Respiratory Rate 16 18 Blood Pressure 117/63 108/53 L Pulse Oximetry 97 96 Oxygen Delivery Method Room Air Room Air BMI result Body Mass Index 29.9 Labs 03/01/23 07:59 Medications Medications Current Medications Acetaminophen (Acetaminophen 325 Mg Tablet) 650 mg PO Q6H PRN PRN Reason: Headache/Pain Mild Scale (1-3) Last Admin: 03/02/23 17:33 Dose: 650 mg Al Hydroxide/Mg Hydroxide (Magnesium Hydrox/Alum Hydrox 30 Ml Oral.Susp) 30 ml PO Q6H PRN PRN Reason: Heartburn/Nausea Clonazepam (Clonazepam 0.5 Mg Tablet) 0.5 mg PO BEDTIME [facility] Last Admin: 03/06/23 20:27 Dose: 0.5 mg Hydrochlorothiazide (Hydrochlorothiazide 25 Mg Tablet) 25 mg PO DAILY [facility]; Protocol Last Admin: 03/07/23 08:33 Dose: 25 mg Hydroxyzine HCl (Hydroxyzine Hcl 25 Mg Tablet) 25 mg PO Q6H PRN PRN Reason: Anxiety Last Admin: 03/04/23 17:07 Dose: 25 mg Levothyroxine Sodium (Levothyroxine Sodium 112 Mcg Tablet) 112 mcg PO DAILY@0600 [facility] Last Admin: 03/07/23 06:00 Dose: 112 mcg Magnesium Hydroxide (Milk Of Magnesia 30 Ml Oral.Susp) 30 ml PO DAILY PRN PRN Reason: Constipation Last Admin: 03/04/23 13:13 Dose: 30 ml Pravastatin Sodium (Pravastatin Sodium 10 Mg Tablet) 10 mg PO DAILY [facility] Last Admin: 03/07/23 08:33 Dose: 10 mg Quetiapine Fumarate (Quetiapine Fumarate 100 Mg Tablet) 100 mg PO BEDTIME [facility] Last Admin: 03/06/23 20:28 Dose: 100 mg Sertraline HCl (Sertraline Hcl 100 Mg Tablet) 200 mg PO DAILY [facility] Last Admin: 03/07/23 08:33 Dose: 200 mg Trazodone HCl (Trazodone Hcl 50 Mg Tablet) 50 mg PO BEDTIME MRX1 PRN PRN Reason: Insomnia Last Admin: 03/04/23 22:52 Dose: 50 mg Valsartan (Valsartan 160 Mg Tablet) 160 mg PO DAILY [facility]; Protocol Last Admin: 03/07/23 08:32 Dose: 160 mg Vitamin D (Cholecalciferol (Vitamin D3) 25 Mcg Tablet) 25 mcg PO DAILY [facility] Last Admin: 03/07/23 08:34 Dose: 25 mcg Allergies Allergies Allergy/AdvReac Type Severity Reaction Status Date / Time No Known Allergies Allergy Verified 02/28/23 14:57 Assessment & Plan Assessment & Plan (1) Major depressive disorder: Status: Acute Code(s): F32.9 - Major depressive disorder, single episode, unspecified (2) Dementia: Status: Acute Code(s): F03.90 - Unspecified dementia, unspecified severity, without behavioral disturbance, psychotic disturbance, mood disturbance, and anxiety Plan The patient is an elderly female, , with a prior history of major depressive disorder and dementia who was brought into the facility transfer from the emergency room of [facility] due to biz arre delusions, persecutory delusions and worsening of her depression since she has lost her provider. She she also has several medical comorbidities such as arthritis, cataracts, thyroid issues, hyperlipidemia and high blood pressure. Plan 1. Gather collateral information. 2. Continue with regular medications. 3. Medical workout. 4. Reassessment results. 5. 5 minutes checks. 03/04: Continue current treatment regimen. 03/05: Continue plan of care. Could possibly benefit from antipsychotic like Abilify for paranoia and to augment antidepressants but reluctant saying those medications are very dangerous. 03/06 continue current medications. continue to monitor. 03/07 continue tx. pt less paranoid, no SI/HI, less suspicious. brighter affect. Reason for continued inpatient stay Substantial Risk for: inability to function Time Spent With Patient Time: Total time managing care of this patient today ____ minutes.
[2023-03-07 18:00] VITALS: BP 129/63; PULSE 72; RESP 17; TEMP 36.4; O2SAT 96
[2023-03-07] MEDS: clonazePAM 0.5 MG TABLET PO (20:07)
[2023-03-07] MEDS: traZODone HCL 50 MG TABLET PO (20:07)
[2023-03-07] MEDS: QUEtiapine Fumarate 100 MG TABLET PO (20:07)
[2023-03-08] MEDS: Levothyroxine Sodium 112 MCG TABLET PO (06:31)
[2023-03-08 08:00] VITALS: BP 90/53; PULSE 62; RESP 18; TEMP 36.3; O2SAT 95
[2023-03-08] MEDS: Pravastatin Sodium 10 MG TABLET PO (09:24)
[2023-03-08] MEDS: Cholecalciferol (Vitamin D3) 25 MCG TABLET PO (09:24)
[2023-03-08] MEDS: Sertraline HCL 100 MG TABLET 200 MG PO (09:24)
--- NOTE | 2023-03-08 15:55 | P.PNPSI_ITS ---
Subjective Subjective Date of Service: 03/08/23 Reason For Visit: Paranoia Subjective Notes: Conditional Voluntary Interim History: Pt reports feeling better. She continues to denied SI/HI. No overt delusional content noted or reported. She has been visible on the unit and social with peers. She also at times isolative to self. No behavioral concerns. Medication Compliance: Yes Review of Systems Review of Systems General: No fevers, malaise, unintentional weight loss HEENT: No blurred vision, diplopia. No sore throat, nasal congestion, rhinorrhea, sinus pain, ear pain Cardiovascular: No chest pain, palpitations, or leg edema Respiratory: No shortness of breath, wheezing, cough GI: No abdominal pain, nausea, vomiting, diarrhea, constipation, melena, hem atochezia : No dysuria, hematuria, increased urinary frequency, decreased urinary output MSK: No myalgia, back pain Neuro: No headaches, weakness, paresthesias Skin: No rashes or lesions Yes Unobtainable due to mental status Mental Status Exam Mental Status Exam Patient Appearance: Well Grooomed and Appropriate Patient Orientation: Person and Situation Level of Consciousness: Awake and Appropriate Patient Behavior: Guarded and Passive Mood Description: Withdrawn Affect Description: Constricted Patient Cognition Impaired: Yes Ability to Follow Directions: Good Speech Pattern: Clear Diagnostics Vital Signs (24Hr): Vital Signs - 24 hr 03/07/23 18:00 03/08/23 08:00 Temperature 97.6 F 97.3 F Pulse Rate 72 62 Respiratory Rate 17 18 Blood Pressure 129/63 90/53 L Pulse Oximetry 96 95 Oxygen Delivery Method Room Air Room Air BMI result Body Mass Index 29.9 Labs 03/01/23 07:59 Medications Medications Current Medications Acetaminophen (Acetaminophen 325 Mg Tablet) 650 mg PO Q6H PRN PRN Reason: Headache/Pain Mild Scale (1-3) Last Admin: 03/02/23 17:33 Dose: 650 mg Al Hydroxide/Mg Hydroxide (Magnesium Hydrox/Alum Hydrox 30 Ml Oral.Susp) 30 ml PO Q6H PRN PRN Reason: Heartburn/Nausea Hydrochlorothiazide (Hydrochlorothiazide 25 Mg Tablet) 25 mg PO DAILY [facility]; Protocol Last Admin: 03/08/23 09:27 Dose: Not Given Hydroxyzine HCl (Hydroxyzine Hcl 25 Mg Tablet) 25 mg PO Q6H PRN PRN Reason: Anxiety Last Admin: 03/04/23 17:07 Dose: 25 mg Levothyroxine Sodium (Levothyroxine Sodium 112 Mcg Tablet) 112 mcg PO DAILY@0600 [facility] Last Admin: 03/08/23 06:31 Dose: 112 mcg Magnesium Hydroxide (Milk Of Magnesia 30 Ml Oral.Susp) 30 ml PO DAILY PRN PRN Reason: Constipation Last Admin: 03/04/23 13:13 Dose: 30 ml Pravastatin Sodium (Pravastatin Sodium 10 Mg Tablet) 10 mg PO DAILY [facility] Last Admin: 03/08/23 09:24 Dose: 10 mg Quetiapine Fumarate (Quetiapine Fumarate 100 Mg Tablet) 100 mg PO BEDTIME [facility] Last Admin: 03/07/23 20:07 Dose: 100 mg Sertraline HCl (Sertraline Hcl 100 Mg Tablet) 200 mg PO DAILY [facility] Last Admin: 03/08/23 09:24 Dose: 200 mg Trazodone HCl (Trazodone Hcl 50 Mg Tablet) 50 mg PO BEDTIME MRX1 PRN PRN Reason: Insomnia Last Admin: 03/07/23 20:07 Dose: 50 mg Valsartan (Valsartan 160 Mg Tablet) 160 mg PO DAILY [facility]; Protocol Last Admin: 03/08/23 09:27 Dose: Not Given Vitamin D (Cholecalciferol (Vitamin D3) 25 Mcg Tablet) 25 mcg PO DAILY [facility] Last Admin: 03/08/23 09:24 Dose: 25 mcg Allergies Allergies Allergy/AdvReac Type Severity Reaction Status Date / Time No Known Allergies Allergy Verified 02/28/23 14:57 Assessment & Plan Assessment & Plan (1) Major depressive disorder: Status: Acute Code(s): F32.9 - Major depressive disorder, single episode, unspecified (2) Dementia: Status: Acute Code(s): F03.90 - Unspecified dementia, unspecified severity, without behavioral disturbance, psychotic disturbance, mood disturbance, and anxiety Plan The patient is an elderly female, , with a prior history of major depressive disorder and dementia who was brought into the facility transfer from the emergency room of [facility] due to bizarre delusions, persecutory delusions and worsening of her depression since she has lost her provider. She she also has several medical comorbidities such as arthritis, cataracts, thyroid issues, hyperlipidemia and high blood pressure. Plan 1. Gather collateral information. 2. Continue with regular medications. 3. Medical workout. 4. Reassessment results. 5. 5 minutes checks. 03/04: Continue current treatment regimen. 03/05: Continue plan of care. Could possibly benefit from antipsychotic like Abilify for paranoia and to augment antidepressants but reluctant saying those medications are very dangerous. 03/06 continue current medications. continue to monitor. 03/07 continue tx. pt less paranoid, no SI/HI, less suspicious. brighter affect. 03/08 continue tx. Reason for continued inpatient stay Substantial Risk for: inability to function Time Spent With Patient Time: Total time managing care of this patient today ____ minutes.
--- NOTE | 2023-03-08 15:55 | P.EN_ITS ---
Event Note Date of Service: 03/08/23 Event Note: Mrs. Randall is a 72 year-old woman who was evaluated at [facility] [place] due to concerns in terms of memory/cognitive declined. Medical work up included MRI which showed microvascular changes, atrophy most pronounced in temporal and parietal lobes. B12, TSH, RPR, CRP, B1 wnl. MOCA / with most impairments in executive function (2/5), recall (3/5), language fluency (0/1). orientation, attention, naming and language repetition are intact. Referral for further evaluation, treatment of neurocognitive disorder Time Spent With Patient Time: Total time managing care of this patient today ____ minutes.
[2023-03-08 19:48] VITALS: BP 140/65; PULSE 73; RESP 18; TEMP 36.7; O2SAT 97
[2023-03-08] MEDS: QUEtiapine Fumarate 100 MG TABLET PO (20:10)
[2023-03-09] MEDS: Levothyroxine Sodium 112 MCG TABLET PO (06:20)
[2023-03-09 07:00] VITALS: BMI 29.9
[2023-03-09 09:22] VITALS: BP 120/58; PULSE 61; RESP 16; TEMP 36.4; O2SAT 97
[2023-03-09] MEDS: Sertraline HCL 100 MG TABLET 200 MG PO (09:24)
[2023-03-09] MEDS: hydroCHLOROthiazide 25 MG TABLET PO (09:24)
[2023-03-09] MEDS: Pravastatin Sodium 10 MG TABLET PO (09:24)
[2023-03-09] MEDS: Cholecalciferol (Vitamin D3) 25 MCG TABLET PO (09:24)
[2023-03-09] MEDS: Valsartan 160 MG TABLET PO (09:24)
[2023-03-09] MEDS: Loperamide HCl 2 MG CAPSULE PO (14:04)
[2023-03-09] MEDS: LORazepam 1 MG TABLET PO (16:46)
[2023-03-09 18:00] VITALS: BP 139/60; PULSE 91; RESP 18; TEMP 36; O2SAT 96
--- NOTE | 2023-03-09 20:07 | HO.PSYCHPN ---
Subjective Subjective Date of Service: 03/09/23 Reason For Visit: Paranoia Subjective Notes: Conditional Voluntary Interim History: Pt presents as much more paranoid, thinking that she has contagious skin disease and people are talking about her. She believes that EMS and security will take her and her family will never find her. She denies SI/HI. She presents as very fearful and paranoid. She states everyone here hates her and they want her out of there. we discussed switching medications from seroquel to olanzapine, which she agrees. Update given to and discharge has been post poned. Review of Systems Review of Systems General: No fevers, malaise, unintentional weight loss HEENT: No blurred vision, diplopia. No sore throat, nasal congestion, rhinorrhea, sinus pain, ear pain Cardiovascular: No chest pain, palpitations, or leg edema Respiratory: No shortness of breath, wheezing, cough GI: No abdominal pain, nausea, vomiting, diarrhea, constipation, melena, hematochezia : No dysuria, hematuria, increased urinary frequency, decreased urinary output MSK: No myalgia, back pain Neuro: No headaches, weakness, paresthesias Skin: No rashes or lesions Yes Unobtainable due to mental status Mental Status Exam Mental Status Exam Patient Appearance: Well Grooomed and Appropriate Patient Orientation: Person and Situation Level of Consciousness: Awake and Appropriate Patient Behavior: Guarded and Passive Mood Description: Withdrawn Affect Description: Constricted Patient Cognition Impaired: Yes Ability to Follow Directions: Good Speech Pattern: Clear Diagnostics Vital Signs (24Hr): Vital Signs - 24 hr 03/09/23 09:22 Temperature 97.6 F Pulse Rate 61 Respiratory Rate 16 Blood Pressure 120/58 L Pulse Oximetry 97 Oxygen Delivery Method Room Air BMI result Body Mass Index 29.9 Labs 03/01/23 07:59 Medications Medications Current Medications Acetaminophen (Acetaminophen 325 Mg Tablet) 650 mg PO Q6H PRN PRN Reason: Headache/Pain Mild Scale (1-3) Last Admin: 03/02/23 17:33 Dose: 650 mg Al Hydroxide/Mg Hydroxide (Magnesium Hydrox/Alum Hydrox 30 Ml Oral.Susp) 30 ml PO Q6H PRN PRN Reason: Heartburn/Nausea Hydrochlorothiazide (Hydrochlorothiazide 25 Mg Tablet) 25 mg PO DAILY [facility]; Protocol Last Admin: 03/09/23 09:24 Dose: 25 mg Hydroxyzine HCl (Hydroxyzine Hcl 25 Mg Tablet) 25 mg PO Q6H PRN PRN Reason: Anxiety Last Admin: 03/04/23 17:07 Dose: 25 mg Levothyroxine Sodium (Levothyroxine Sodium 112 Mcg Tablet) 112 mcg PO DAILY@0600 [facility] Last Admin: 03/09/23 06:20 Dose: 112 mcg Loperamide HCl (Loperamide Hcl 2 Mg Capsule) 2 mg PO Q4H PRN PRN Reason: Diarrhea Last Admin: 03/09/23 14:04 Dose: 2 mg Magnesium Hydroxide (Milk Of Magnesia 30 Ml Oral.Susp) 30 ml PO DAILY PRN PRN Reason: Constipation Last Admin: 03/04/23 13:13 Dose: 30 ml Olanzapine (Olanzapine Odt 10 Mg Tab.Rapdis) 10 mg TRANSLINGU BEDTIME [facility] Pravastatin Sodium (Pravastatin Sodium 10 Mg Tablet) 10 mg PO DAILY [facility] Last Admin: 03/09/23 09:24 Dose: 10 mg Sertraline HCl (Sertraline Hcl 100 Mg Tablet) 200 mg PO DAILY [facility] Last Admin: 03/09/23 09:24 Dose: 200 mg Trazodone HCl (Trazodone Hcl 50 Mg Tablet) 50 mg PO BEDTIME MRX1 PRN PRN Reason: Insomnia Last Admin: 03/07/23 20:07 Dose: 50 mg Valsartan (Valsartan 160 Mg Tablet) 160 mg PO DAILY [facility]; Protocol Last Admin: 03/09/23 09:24 Dose: 160 mg Vitamin D (Cholecalciferol (Vitamin D3) 25 Mcg Tablet) 25 mcg PO DAILY [facility] Last Admin: 03/09/23 09:24 Dose: 25 mcg Allergies Allergies Allergy/AdvReac Type Severity Reaction Status Date / Time No Known Allergies Allergy Verified 02/28/23 14:57 Assessment & Plan Assessment & Plan (1) Major depressive disorder: Status: Acute Code(s): F32.9 - Major depressive disorder, single episode, unspecified (2) Dementia: Status: Acute Code(s): F03.90 - Unspecified dementia, unspecified severity, without behavioral disturbance, psychotic disturbance, mood disturbance, and anxiety Plan The patient is an elderly female, , with a prior history of major depressive disorder and dementia who was brought into the facility transfer from the emergency room of [facility] due to bizarre delusions, persecutory delusions and worsening of her depression since she has lost her provider. She she also has several medical comorbidities such as arthritis, cataracts, thyroid issues, hyperlipidemia and high blood pressure. Plan 1. Gather collateral information. 2. Continue with regular medications. 3. Medical workout. 4. Reassessment results. 5. 5 minutes checks. 03/04: Continue current treatment regimen. 03/05: Continue plan of care. Could possibly benefit from antipsychotic like Abilify for paranoia and to augment antidepressants but reluctant saying those medications are very dangerous. 03/06 continue current medications. continue to monitor. 03/07 continue tx. pt less paranoid, no SI/HI, less suspicious. brighter affect. 03/08 continue tx. 03/09 d/c seroquel start olanzapine 10mg po qhs. Reason for continued inpatient stay Substantial Risk for: inability to function Time Spent With Patient Time: Total time managing care of this patient today ____ minutes.
[2023-03-09] MEDS: traZODone HCL 50 MG TABLET PO (20:35)
[2023-03-09] MEDS: OLANZapine ODT 10 MG TAB.RAPDIS TRANSLINGU (20:35)
[2023-03-09] MEDS: Acetaminophen 325 MG TABLET 650 MG PO (20:57)
[2023-03-10] MEDS: Levothyroxine Sodium 112 MCG TABLET PO (06:21)
[2023-03-10 08:19] VITALS: BP 111/57; PULSE 50; RESP 18; TEMP 36.3; O2SAT 94
[2023-03-10] MEDS: Cholecalciferol (Vitamin D3) 25 MCG TABLET PO (08:23)
[2023-03-10] MEDS: Pravastatin Sodium 10 MG TABLET PO (08:23)
[2023-03-10] MEDS: Sertraline HCL 100 MG TABLET 200 MG PO (08:23)
[2023-03-10] MEDS: hydroCHLOROthiazide 25 MG TABLET PO (08:42)
[2023-03-10] MEDS: Valsartan 160 MG TABLET PO (08:43)
--- NOTE | 2023-03-10 15:24 | P.PNPSI_ITS ---
Subjective Subjective Date of Service: 03/10/23 Reason For Visit: Paranoia Subjective Notes: Conditional Voluntary Interim History: Met pt with . Pt calmer, but continues to believe that EMS and police are after her and are going to take her away from her family. She slept better last night. Pt has been visible but guarded and suspicious of peers and staff. Medication Compliance: Yes Review of Systems Review of Systems General: No fevers, malaise, unintentional weight loss HEENT: No blurred vision, diplopia. No sore throat, nasal congestion, rhinor mita, sinus pain, ear pain Cardiovascular: No chest pain, palpitations, or leg edema Respiratory: No shortness of breath, wheezing, cough GI: No abdominal pain, nausea, vomiting, diarrhea, constipation, melena, hematochezia : No dysuria, hematuria, increased urinary frequency, decreased urinary output MSK: No myalgia, back pain Neuro: No headaches, weakness, paresthesias Skin: No rashes or lesions Yes Unobtainable due to mental status Mental Status Exam Mental Status Exam Patient Appearance: Well Grooomed and Appropriate Patient Orientation: Person and Situation Level of Consciousness: Awake and Appropriate Patient Behavior: Guarded and Passive Mood Description: Withdrawn Affect Description: Constricted Patient Cognition Impaired: Yes Ability to Follow Directions: Good Speech Pattern: Clear Diagnostics Vital Signs (24Hr): Vital Signs - 24 hr 03/09/23 18:00 03/10/23 08:19 Temperature 96.8 F 97.4 F Pulse Rate 91 50 Respiratory Rate 18 18 Blood Pressure 139/60 111/57 L Pulse Oximetry 96 94 Oxygen Delivery Method Room Air Room Air BMI result Body Mass Index 29.9 Labs 03/01/23 07:59 Medications Medications Current Medications Acetaminophen (Acetaminophen 325 Mg Tablet) 650 mg PO Q6H PRN PRN Reason: Headache/Pain Mild Scale (1-3) Last Admin: 03/09/23 20:57 Dose: 650 mg Al Hydroxide/Mg Hydroxide (Magnesium Hydrox/Alum Hydrox 30 Ml Oral.Susp) 30 ml PO Q6H PRN PRN Reason: Heartburn/Nausea Clonazepam (Clonazepam 0.125 Mg Tab.Rapdis) 0.5 mg PO BEDTIME [facility] Hydrochlorothiazide (Hydrochlorothiazide 25 Mg Tablet) 25 mg PO DAILY [facility]; Protocol Last Admin: 03/10/23 08:42 Dose: 25 mg Hydroxyzine HCl (Hydroxyzine Hcl 25 Mg Tablet) 25 mg PO Q6H PRN PRN Reason: Anxiety Last Admin: 03/04/23 17:07 Dose: 25 mg Levothyroxine Sodium (Levothyroxine Sodium 112 Mcg Tablet) 112 mcg PO DAILY@0600 [facility] Last Admin: 03/10/23 06:21 Dose: 112 mcg Loperamide HCl (Loperamide Hcl 2 Mg Capsule) 2 mg PO Q4H PRN PRN Reason: Diarrhea Last Admin: 03/09/23 14:04 Dose: 2 mg Magnesium Hydroxide (Milk Of Magnesia 30 Ml Oral.Susp) 30 ml PO DAILY PRN PRN Reason: Constipation Last Admin: 03/04/23 13:13 Dose: 30 ml Olanzapine (Olanzapine Odt 10 Mg Tab.Rapdis) 10 mg TRANSLINGU BEDTIME [facility] Last Admin: 03/09/23 20:35 Dose: 10 mg Pravastatin Sodium (Pravastatin Sodium 10 Mg Tablet) 10 mg PO DAILY [facility] Last Admin: 03/10/23 08:23 Dose: 10 mg Sertraline HCl (Sertraline Hcl 100 Mg Tablet) 200 mg PO DAILY [facility] Last Admin: 03/10/23 08:23 Dose: 200 mg Trazodone HCl (Trazodone Hcl 50 Mg Tablet) 50 mg PO BEDTIME MRX1 PRN PRN Reason: Insomnia Last Admin: 03/09/23 20:35 Dose: 50 mg Valsartan (Valsartan 160 Mg Tablet) 160 mg PO DAILY [facility]; Protocol Last Admin: 03/10/23 08:43 Dose: 160 mg Vitamin D (Cholecalciferol (Vitamin D3) 25 Mcg Tablet) 25 mcg PO DAILY [facility] Last Admin: 03/10/23 08:23 Dose: 25 mcg Allergies Allergies Allergy/AdvReac Type Severity Reaction Status Date / Time No Known Allergies Allergy Verified 02/28/23 14:57 Assessment & Plan Assessment & Plan (1) Dementia: Status: Acute Code(s): F03.90 - Unspecified dementia, unspecified severity, without behavioral disturbance, psychotic disturbance, mood disturbance, and anxiety (2) MDD (major depressive disorder), recurrent, severe, with psychosis: Status: Acute Code(s): F33.3 - Major depressive disorder, recurrent, severe with psychotic symptoms Plan The patient is an elderly female, , with a prior history of major depressive disorder and dementia who was brought into the facility transfer from the emergency room of [facility] due to bizarre delusions, persecutory delusions and worsening of her depression since she has lost her provider. She she also has several medical comorbidities such as arthritis, cataracts, thyroid issues, hyperlipidemia and high blood pressure. Plan 1. Gather collateral information. 2. Continue with regular medications. 3. Medical workout. 4. Reassessment results. 5. 5 minutes checks. 03/04: Continue current treatment regimen. 03/05: Continue plan of care. Could possibly benefit from antipsychotic like Abilify for paranoia and to augment antidepressants but reluctant saying those medications are very dangerous. 03/06 continue current medications. continue to monitor. 03/07 continue tx. pt less paranoid, no SI/HI, less suspicious. brighter affect. 03/08 continue tx. 03/09 d/c seroquel start olanzapine 10mg po qhs. 03/10 continue current medications. Reason for continued inpatient stay Substantial Risk for: inability to function Time Spent With Patient Time: Total time managing care of this patient today ____ minutes.
[2023-03-10 18:00] VITALS: BP 143/62; PULSE 64; RESP 18; TEMP 36; O2SAT 99
[2023-03-10] MEDS: Loperamide HCl 2 MG CAPSULE PO (18:27)
[2023-03-10] MEDS: OLANZapine ODT 10 MG TAB.RAPDIS TRANSLINGU (20:42)
[2023-03-10] MEDS: traZODone HCL 50 MG TABLET PO (20:42)
[2023-03-11] MEDS: Levothyroxine Sodium 112 MCG TABLET PO (06:03)
[2023-03-11 08:39] VITALS: BP 110/68; PULSE 67; RESP 16; TEMP 36.6; O2SAT 99
[2023-03-11] MEDS: Pravastatin Sodium 10 MG TABLET PO (08:41)
[2023-03-11] MEDS: Sertraline HCL 100 MG TABLET 200 MG PO (08:41)
[2023-03-11] MEDS: hydroCHLOROthiazide 25 MG TABLET PO (08:41)
[2023-03-11] MEDS: Cholecalciferol (Vitamin D3) 25 MCG TABLET PO (08:41)
[2023-03-11] MEDS: Valsartan 160 MG TABLET PO (08:41)
--- NOTE | 2023-03-11 16:44 | HO.PSYCHPN ---
Subjective Subjective Date of Service: 03/11/23 Reason For Visit: Paranoia Interim History: Met with patient; discussed with team Patient withdrawn, lying in bed, says she is allright. Staff reports no change in presentation Mental Status Exam Mental Status Exam Patient Appearance: Well Grooomed and Appropriate Patient Orientation: Person, Place and Situation Level of Consciousness: Awake and Appropriate Patient Behavior: Guarded and Passive Mood Description: Withdrawn Affect Description: Constricted Patient Cognition Impaired: Yes Ability to Follow Directions: Good Speech Pattern: Clear Judgement and Insight: Impaired Diagnostics Vital Signs (24Hr): Vital Signs - 24 hr 03/10/23 18:00 03/11/23 08:39 Temperature 96.8 F 97.8 F Pulse Rate 64 67 Respiratory Rate 18 16 Blood Pressure 143/62 H 110/68 Pulse Oximetry 99 99 Oxygen Delivery Method Room Air Room Air BMI result Body Mass Index 29.9 Labs 03/01/23 07:59 Medications Medications Current Medications Acetaminophen (Acetaminophen 325 Mg Tablet) 650 mg PO Q6H PRN PRN Reason: Headache/Pain Mild Scale (1-3) Last Admin: 03/09/23 20:57 Dose: 650 mg Al Hydroxide/Mg Hydroxide (Magnesium Hydrox/Alum Hydrox 30 Ml Oral.Susp) 30 ml PO Q6H PRN PRN Reason: Heartburn/Nausea Clonazepam (Clonazepam 0.125 Mg Tab.Rapdis) 0.5 mg PO BEDTIME [facility] Last Admin: 03/10/23 20:41 Dose: 0.5 mg Hydrochlorothiazide (Hydrochlorothiazide 25 Mg Tablet) 25 mg PO DAILY [facility]; Protocol Last Admin: 03/11/23 08:41 Dose: 25 mg Hydroxyzine HCl (Hydroxyzine Hcl 25 Mg Tablet) 25 mg PO Q6H PRN PRN Reason: Anxiety Last Admin: 03/04/23 17:07 Dose: 25 mg Levothyroxine Sodium (Levothyroxine Sodium 112 Mcg Tablet) 112 mcg PO DAILY@0600 [facility] Last Admin: 03/11/23 06:03 Dose: 112 mcg Loperamide HCl (Loperamide Hcl 2 Mg Capsule) 2 mg PO Q4H PRN PRN Reason: Diarrhea Last Admin: 03/10/23 18:27 Dose: 2 mg Magnesium Hydroxide (Milk Of Magnesia 30 Ml Oral.Susp) 30 ml PO DAILY PRN PRN Reason: Constipation Last Admin: 03/04/23 13:13 Dose: 30 ml Olanzapine (Olanzapine Odt 10 Mg Tab.Rapdis) 10 mg TRANSLINGU BEDTIME [facility] Last Admin: 03/10/23 20:42 Dose: 10 mg Pravastatin Sodium (Pravastatin Sodium 10 Mg Tablet) 10 mg PO DAILY [facility] Last Admin: 03/11/23 08:41 Dose: 10 mg Sertraline HCl (Sertraline Hcl 100 Mg Tablet) 200 mg PO DAILY [facility] Last Admin: 03/11/23 08:41 Dose: 200 mg Trazodone HCl (Trazodone Hcl 50 Mg Tablet) 50 mg PO BEDTIME MRX1 PRN PRN Reason: Insomnia Last Admin: 03/10/23 20:42 Dose: 50 mg Valsartan (Valsartan 160 Mg Tablet) 160 mg PO DAILY [facility]; Protocol Last Admin: 03/11/23 08:41 Dose: 160 mg Vitamin D (Cholecalciferol (Vitamin D3) 25 Mcg Tablet) 25 mcg PO DAILY [facility] Last Admin: 03/11/23 08:41 Dose: 25 mcg Allergies Allergies Allergy/AdvReac Type Severity Reaction Status Date / Time No Known Allergies Allergy Verified 02/28/23 14:57 Assessment & Plan Assessment & Plan (1) Dementia: Status: Acute Code(s): F03.90 - Unspecified dementia, unspecified severity, without behavioral disturbance, psychotic disturbance, mood disturbance, and anxiety (2) MDD (major depressive disorder), recurrent, severe, with psychosis: Status: Acute Code(s): F33.3 - Major depressive disorder, recurrent, severe with psychotic symptoms Plan The patient is an elderly female, , with a prior history of major depressive disorder and dementia who was brought into the facility transfer from the emergency room of [facility] due to bizarre delusions, persecutory delusions and worsening of her depression since she has lost her provider. She she also has several medical comorbidities such as arthritis, cataracts, thyroid issues, hyperlipidemia and high blood pressure. Plan 1. Gather collateral information. 2. Continue with regular medications. 3. Medical workout. 4. Reassessment results. 5. 5 minutes checks. 03/04: Continue current treatment regimen. 03/05: Continue plan of care. Could possibly benefit from antipsychotic like Abilify for paranoia and to augment antidepressants but reluctant saying those medications are very dangerous. 03/06 continue current medications. continue to monitor. 03/07 continue tx. pt less paranoid, no SI/HI, less suspicious. brighter affect. 03/08 continue tx. 03/09 d/c seroquel start olanzapine 10mg po qhs. 03/10 continue current medications. 03/11 continue current treatment plan Reason for continued inpatient stay Substantial Risk for: inability to function Time Spent With Patient Time: Total time managing care of this patient today ____ minutes.
[2023-03-11 18:00] VITALS: BP 139/76; PULSE 62; RESP 16; TEMP 36.3; O2SAT 100
[2023-03-11] MEDS: OLANZapine ODT 10 MG TAB.RAPDIS TRANSLINGU (20:49)
[2023-03-11] MEDS: traZODone HCL 50 MG TABLET PO (21:51)
[2023-03-12] MEDS: Levothyroxine Sodium 112 MCG TABLET PO (06:22)
[2023-03-12 08:43] VITALS: BP 109/58; PULSE 60; RESP 16; TEMP 36.2; O2SAT 94
[2023-03-12] MEDS: Valsartan 160 MG TABLET PO (08:44)
[2023-03-12] MEDS: Sertraline HCL 100 MG TABLET 200 MG PO (08:44)
[2023-03-12] MEDS: hydroCHLOROthiazide 25 MG TABLET PO (08:44)
[2023-03-12] MEDS: Pravastatin Sodium 10 MG TABLET PO (08:44)
[2023-03-12] MEDS: Cholecalciferol (Vitamin D3) 25 MCG TABLET PO (08:44)
--- NOTE | 2023-03-12 10:53 | HO.PSYCHPN ---
Subjective Subjective Date of Service: 03/12/23 Reason For Visit: Paranoia Interim History: Met with patient; discussed with team Patient lying in bed on approach but awake and alert. She says she is all right. When asked why she is here patient says she is here because of depression and anxiety. However she says she is getting better because I have been getting medication and people are talking to me... She denies any SI or AVH. Mental Status Exam Mental Status Exam Patient Appearance: Well Grooomed and Appropriate Patient Orientation: Person, Place and Situation Level of Consciousness: Awake and Appropriate Patient Behavior: Appropriate, Passive and Good Eye Contact Mood Description: Withdrawn Affect Description: Calm and Withdrawn Patient Cognition Impaired: Yes Ability to Follow Directions: Good Speech Pattern: Clear Hallucinations: None Thought Process: Goal Oriented Thought Content: positive for Intact (In that she denies SI/HI) Judgement and Insight: Impaired Diagnostics Vital Signs (24Hr): Vital Signs - 24 hr 03/11/23 18:00 03/12/23 08:43 Temperature 97.4 F 97.2 F Pulse Rate 62 60 Respiratory Rate 16 16 Blood Pressure 139/76 109/58 L Pulse Oximetry 100 94 Oxygen Delivery Method Room Air Room Air BMI result Body Mass Index 29.9 Labs 03/01/23 07:59 Medications Medications Current Medications Acetaminophen (Acetaminophen 325 Mg Tablet) 650 mg PO Q6H PRN PRN Reason: Headache/Pain Mild Scale (1-3) Last Admin: 03/09/23 20:57 Dose: 650 mg Al Hydroxide/Mg Hydroxide (Magnesium Hydrox/Alum Hydrox 30 Ml Oral.Susp) 30 ml PO Q6H PRN PRN Reason: Heartburn/Nausea Clonazepam (Clonazepam 0.125 Mg Tab.Rapdis) 0.5 mg PO BEDTIME [facility] Last Admin: 03/11/23 21:51 Dose: 0.5 mg Hydrochlorothiazide (Hydrochlorothiazide 25 Mg Tablet) 25 mg PO DAILY [facility]; Protocol Last Admin: 03/12/23 08:44 Dose: 25 mg Hydroxyzine HCl (Hydroxyzine Hcl 25 Mg Tablet) 25 mg PO Q6H PRN PRN Reason: Anxiety Last Admin: 03/04/23 17:07 Dose: 25 mg Levothyroxine Sodium (Levothyroxine Sodium 112 Mcg Tablet) 112 mcg PO DAILY@0600 [facility] Last Admin: 09/03/23 06:22 Dose: 112 mcg Loperamide HCl (Loperamide Hcl 2 Mg Capsule) 2 mg PO Q4H PRN PRN Reason: Diarrhea Last Admin: 03/10/23 18:27 Dose: 2 mg Magnesium Hydroxide (Milk Of Magnesia 30 Ml Oral.Susp) 30 ml PO DAILY PRN PRN Reason: Constipation Last Admin: 03/04/23 13:13 Dose: 30 ml Olanzapine (Olanzapine Odt 10 Mg Tab.Rapdis) 10 mg TRANSLINGU BEDTIME [facility] Last Admin: 03/11/23 20:49 Dose: 10 mg Pravastatin Sodium (Pravastatin Sodium 10 Mg Tablet) 10 mg PO DAILY [facility] Last Admin: 03/12/23 08:44 Dose: 10 mg Sertraline HCl (Sertraline Hcl 100 Mg Tablet) 200 mg PO DAILY [facility] Last Admin: 03/12/23 08:44 Dose: 200 mg Trazodone HCl (Trazodone Hcl 50 Mg Tablet) 50 mg PO BEDTIME MRX1 PRN PRN Reason: Insomnia Last Admin: 03/11/23 21:51 Dose: 50 mg Valsartan (Valsartan 160 Mg Tablet) 160 mg PO DAILY [facility]; Protocol Last Admin: 03/12/23 08:44 Dose: 160 mg Vitamin D (Cholecalciferol (Vitamin D3) 25 Mcg Tablet) 25 mcg PO DAILY [facility] Last Admin: 03/12/23 08:44 Dose: 25 mcg Allergies Allergies Allergy/AdvReac Type Severity Reaction Status Date / Time No Known Allergies Allergy Verified 02/28/23 14:57 Assessment & Plan Assessment & Plan (1) Dementia: Status: Acute Code(s): F03.90 - Unspecified dementia, unspecified severity, without behavioral disturbance, psychotic disturbance, mood disturbance, and anxiety (2) MDD (major depressive disorder), recurrent, severe, with psychosis: Status: Acute Code(s): F33.3 - Major depressive disorder, recurrent, severe with psychotic symptoms Plan The patient is an elderly female, , with a prior history of major depressive disorder and dementia who was brought into the facility transfer from the emergency room of [facility] due to bizarre delusions, persecutory delusions and worsening of her depression since she has lost her provider. She she also has several medical comorbidities such as arthritis, cataracts, thyroid issues, hyperlipidemia and high blood pressure. Plan 1. Gather collateral information. 2. Continue with regular medications. 3. Medical workout. 4. Reassessment results. 5. 5 minutes checks. 03/04: Continue current treatment regimen. 03/05: Continue plan of care. Could possibly benefit from antipsychotic like Abilify for paranoia and to augment antidepressants but reluctant saying those medications are very dangerous. 03/06 continue current medications. continue to monitor. 03/07 continue tx. pt less paranoid, no SI/HI, less suspicious. brighter affect. 03/08 continue tx. 03/09 d/c seroquel start olanzapine 10mg po qhs. 03/10 continue current medications. 03/11 continue current treatment plan 03/12 continue current treatment plan Patient educated on: diagnosis Informed Consent: understands and further education needed Reason for continued inpatient stay Substantial Risk for: inability to function Time Spent With Patient Time: Total time managing care of this patient today ____ minutes.
[2023-03-12 18:00] VITALS: BP 113/63; PULSE 68; RESP 17; TEMP 36.1; O2SAT 98
[2023-03-12] MEDS: OLANZapine ODT 10 MG TAB.RAPDIS TRANSLINGU (20:31)
[2023-03-13] MEDS: Levothyroxine Sodium 112 MCG TABLET PO (06:16)
[2023-03-13 08:46] VITALS: BP 91/50; PULSE 61; RESP 16; TEMP 36.7; O2SAT 96
[2023-03-13] MEDS: Pravastatin Sodium 10 MG TABLET PO (08:58)
[2023-03-13] MEDS: Sertraline HCL 100 MG TABLET 200 MG PO (08:58)
[2023-03-13] MEDS: Cholecalciferol (Vitamin D3) 25 MCG TABLET PO (08:58)
--- NOTE | 2023-03-13 10:35 | P.PNPSI_ITS ---
Subjective Subjective Date of Service: 03/13/23 Reason For Visit: Paranoia Interim History: Met with Patient; discussed with team pt says she's fine. remains mostly isolative. Board Lining Machine Operator asks her about it and she says she doesnt like being on the unit and just wants to go home. discussed be havioral activation. Med compliant. Mental Status Exam Mental Status Exam Patient Appearance: Well Grooomed and Appropriate Patient Orientation: Person, Place and Situation Level of Consciousness: Awake and Appropriate Patient Behavior: Appropriate, Passive and Good Eye Contact Mood Description: Withdrawn Affect Description: Calm and Withdrawn Patient Cognition Impaired: Yes Ability to Follow Directions: Good Speech Pattern: Clear Hallucinations: None Thought Process: Goal Oriented Thought Content: positive for Intact (In that she denies SI/HI) Judgement and Insight: Impaired Diagnostics Vital Signs (24Hr): Vital Signs - 24 hr 03/12/23 18:00 03/13/23 08:46 Temperature 96.9 F 98.1 F Pulse Rate 68 61 Respiratory Rate 17 16 Blood Pressure 113/63 91/50 L Pulse Oximetry 98 96 Oxygen Delivery Method Room Air Room Air BMI result Body Mass Index 29.9 Labs 03/01/23 07:59 Medications Medications Current Medications Acetaminophen (Acetaminophen 325 Mg Tablet) 650 mg PO Q6H PRN PRN Reason: Headache/Pain Mild Scale (1-3) Last Admin: 03/09/23 20:57 Dose: 650 mg Al Hydroxide/Mg Hydroxide (Magnesium Hydrox/Alum Hydrox 30 Ml Oral.Susp) 30 ml PO Q6H PRN PRN Reason: Heartburn/Nausea Clonazepam (Clonazepam 0.125 Mg Tab.Rapdis) 0.5 mg PO BEDTIME [facility] Last Admin: 03/12/23 20:31 Dose: 0.5 mg Hydrochlorothiazide (Hydrochlorothiazide 25 Mg Tablet) 25 mg PO DAILY [facility]; Protocol Last Admin: 03/13/23 08:59 Dose: Not Given Hydroxyzine HCl (Hydroxyzine Hcl 25 Mg Tablet) 25 mg PO Q6H PRN PRN Reason: Anxiety Last Admin: 03/04/23 17:07 Dose: 25 mg Levothyroxine Sodium (Levothyroxine Sodium 112 Mcg Tablet) 112 mcg PO MANINDER LY@0600 [facility] Last Admin: 03/13/23 06:16 Dose: 112 mcg Loperamide HCl (Loperamide Hcl 2 Mg Capsule) 2 mg PO Q4H PRN PRN Reason: Diarrhea Last Admin: 03/10/23 18:27 Dose: 2 mg Magnesium Hydroxide (Milk Of Magnesia 30 Ml Oral.Susp) 30 ml PO DAILY PRN PRN Reason: Constipation Last Admin: 03/04/23 13:13 Dose: 30 ml Olanzapine (Olanzapine Odt 10 Mg Tab.Rapdis) 10 mg TRANSLINGU BEDTIME [facility] Last Admin: 03/12/23 20:31 Dose: 10 mg Pravastatin Sodium (Pravastatin Sodium 10 Mg Tablet) 10 mg PO DAILY [facility] Last Admin: 03/13/23 08:58 Dose: 10 mg Sertraline HCl (Sertraline Hcl 100 Mg Tablet) 200 mg PO DAILY [facility] Last Admin: 03/13/23 08:58 Dose: 200 mg Trazodone HCl (Trazodone Hcl 50 Mg Tablet) 50 mg PO BEDTIME MRX1 PRN PRN Reason: Insomnia Last Admin: 03/11/23 21:51 Dose: 50 mg Valsartan (Valsartan 160 Mg Tablet) 160 mg PO DAILY [facility]; Protocol Last Admin: 03/13/23 09:00 Dose: Not Given Vitamin D (Cholecalciferol (Vitamin D3) 25 Mcg Tablet) 25 mcg PO DAILY [facility] Last Admin: 03/13/23 08:58 Dose: 25 mcg Allergies Allergies Allergy/AdvReac Type Severity Reaction Status Date / Time No Known Allergies Allergy Verified 02/28/23 14:57 Assessment & Plan Assessment & Plan (1) Dementia: Status: Acute Code(s): F03.90 - Unspecified dementia, unspecified severity, without behavioral disturbance, psychotic disturbance, mood disturbance, and anxiety (2) MDD (major depressive disorder), recurrent, severe, with psychosis: Status: Acute Code(s): F33.3 - Major depressive disorder, recurrent, severe with psychotic symptoms Plan The patient is an elderly female, , with a prior history of major depressive disorder and dementia who was brought into the facility transfer from the emergency room of [facility] due to bizarre delusions, persecutory delusions and worsening of her depression since she has lost her provider. She she also has several medical comorbidities such as arthritis, cataracts, thyroid issues, hyperlipidemia and high blood pressure. Plan 1. Gather collateral information. 2. Continue with regular medications. 3. Medical workout. 4. Reassessment results. 5. 5 minutes checks. 03/04: Continue current treatment regimen. 03/05: Continue plan of care. Could possibly benefit from antipsychotic like Abilify for paranoia and to augment antidepressants but reluctant saying those medications are very dangerous. 03/06 continue current medications. continue to monitor. 03/07 continue tx. pt less paranoid, no SI/HI, less suspicious. brighter affect. 03/08 continue tx. 03/09 d/c seroquel start olanzapine 10mg po qhs. 03/10 continue current medications. 03/11 continue current treatment plan 03/12 continue current treatment plan 03/13 continue current tx plan Patient educated on: diagnosis and therapeutic strategies Informed Consent: understands Reason for continued inpatient stay Substantial Risk for: med/psych decompensation Time Spent With Patient Time: Total time managing care of this patient today ____ minutes.
[2023-03-13 20:00] VITALS: BP 97/53; PULSE 66; RESP 18; TEMP 36.9; O2SAT 94
[2023-03-13] MEDS: OLANZapine ODT 10 MG TAB.RAPDIS TRANSLINGU (20:21)
[2023-03-14] MEDS: Levothyroxine Sodium 112 MCG TABLET PO (06:33)
[2023-03-14 08:22] VITALS: BP 115/54; PULSE 60; RESP 18; TEMP 36.4; O2SAT 94
[2023-03-14] MEDS: Valsartan 160 MG TABLET PO (08:35)
[2023-03-14] MEDS: Sertraline HCL 100 MG TABLET 200 MG PO (08:35)
[2023-03-14] MEDS: hydroCHLOROthiazide 25 MG TABLET PO (08:36)
[2023-03-14] MEDS: Cholecalciferol (Vitamin D3) 25 MCG TABLET PO (08:36)
[2023-03-14] MEDS: Pravastatin Sodium 10 MG TABLET PO (08:36)
[2023-03-14] MEDS: Milk of Magnesia 30 ML ORAL.SUSP PO (12:42)
--- NOTE | 2023-03-14 16:11 | P.PNPSI_ITS ---
Subjective Subjective Date of Service: 03/14/23 Reason For Visit: Paranoia Subjective Notes: Conditional Voluntary Interim History: The nursing staff reported the patient had been delayed responses and she had been hypoactive isolative at times. She socializes sporadically with her roommate. She slept well last night. On interview the patient reported that she had been constipated and she agreed to start fiber in her diet. Mental Status Exam Mental Status Exam Patient Appearance: Well Grooomed and Appropriate Patient Orientation: Person and Situation Level of Consciousness: Awake and Appropriate Patient Behavior: Guarded and Passive Mood Description: Withdrawn Affect Description: Constricted Patient Cognition Impaired: Yes Ability to Follow Directions: Good Speech Pattern: Clear Hallucinations: None Delusions: Not Present Thought Process: Linear Thought Content: positive for [place] and positive for Goal Oriented Judgement: Fair Diagnostics Vital Signs (24Hr): Vital Signs - 24 hr 03/13/23 20:00 03/14/23 08:22 Temperature 98.4 F 97.6 F Pulse Rate 66 60 Respiratory Rate 18 18 Blood Pressure 97/53 L 115/54 L Pulse Oximetry 94 94 Oxygen Delivery Method Room Air Room Air BMI result Body Mass Index 29.9 Labs 03/01/23 07:59 Medications Medications Current Medications Acetaminophen (Acetaminophen 325 Mg Tablet) 650 mg PO Q6H PRN PRN Reason: Headache/Pain Mild Scale (1-3) Last Admin: 03/09/23 20:57 Dose: 650 mg Al Hydroxide/Mg Hydroxide (Magnesium Hydrox/Alum Hydrox 30 Ml Oral.Susp) 30 ml PO Q6H PRN PRN Reason: Heartburn/Nausea Clonazepam (Clonazepam 0.125 Mg Tab.Rapdis) 0.5 mg PO BEDTIME [facility] Last Admin: 03/13/23 20:21 Dose: 0.5 mg Hydrochlorothiazide (Hydrochlorothiazide 25 Mg Tablet) 25 mg PO DAILY [facility]; Protocol Last Admin: 03/14/23 08:36 Dose: 25 mg Hydroxyzine HCl (Hydroxyzine Hcl 25 Mg Tablet) 25 mg PO Q6H PRN PRN Reason: Anxiety Last Admin: 03/04/23 17:07 Dose: 25 mg Levothyroxine Sodium (Levothyroxine Sodium 112 Mcg Tablet) 112 mcg PO DAILY@0 600 [facility] Last Admin: 03/14/23 06:33 Dose: 112 mcg Loperamide HCl (Loperamide Hcl 2 Mg Capsule) 2 mg PO Q4H PRN PRN Reason: Diarrhea Last Admin: 03/10/23 18:27 Dose: 2 mg Magnesium Hydroxide (Milk Of Magnesia 30 Ml Oral.Susp) 30 ml PO DAILY PRN PRN Reason: Constipation Last Admin: 03/14/23 12:42 Dose: 30 ml Olanzapine (Olanzapine Odt 10 Mg Tab.Rapdis) 10 mg TRANSLINGU BEDTIME [facility] Last Admin: 03/13/23 20:21 Dose: 10 mg Pravastatin Sodium (Pravastatin Sodium 10 Mg Tablet) 10 mg PO DAILY [facility] Last Admin: 03/14/23 08:36 Dose: 10 mg Sertraline HCl (Sertraline Hcl 100 Mg Tablet) 200 mg PO DAILY [facility] Last Admin: 03/14/23 08:35 Dose: 200 mg Trazodone HCl (Trazodone Hcl 50 Mg Tablet) 50 mg PO BEDTIME MRX1 PRN PRN Reason: Insomnia Last Admin: 03/11/23 21:51 Dose: 50 mg Valsartan (Valsartan 160 Mg Tablet) 160 mg PO DAILY [facility]; Protocol Last Admin: 03/14/23 08:35 Dose: 160 mg Vitamin D (Cholecalciferol (Vitamin D3) 25 Mcg Tablet) 25 mcg PO DAILY [facility] Last Admin: 03/14/23 08:36 Dose: 25 mcg Allergies Allergies Allergy/AdvReac Type Severity Reaction Status Date / Time No Known Allergies Allergy Verified 02/28/23 14:57 Assessment & Plan Assessment & Plan (1) Dementia: Status: Acute Code(s): F03.90 - Unspecified dementia, unspecified severity, without behavioral disturbance, psychotic disturbance, mood disturbance, and anxiety (2) MDD (major depressive disorder), recurrent, severe, with psychosis: Status: Acute Code(s): F33.3 - Major depressive disorder, recurrent, severe with psychotic symptoms Plan The patient is an elderly female, , with a prior history of major depressive disorder and dementia who was brought into the facility transfer from the emergency room of [facility] due to bizarre delusions, persecutory delusions and worsening of her depression since she has lost her provider. She she also has several medical comorbidities such as arthritis, cataracts, thyroid issues, hyperlipidemia and high blood pressure. Plan 1. Gather collateral information. 2. Continue with regular medications. 3. Medical workout. 4. Reassessment results. 5. 15 minutes checks. 6. Continue Zoloft 200 mg p.o. daily. 7. And MiraLax for constipation on March 14. Reason for continued inpatient stay Substantial Risk for: inability to function, rapid decompensation and med/psych decompensation Time Spent With Patient Time: Total time managing care of this patient today __20__ minutes.
[2023-03-14] MEDS: Loperamide HCl 2 MG CAPSULE PO (16:29)
[2023-03-14 18:00] VITALS: BP 116/70; PULSE 60; RESP 18; TEMP 37.1; O2SAT 96
[2023-03-14] MEDS: OLANZapine ODT 10 MG TAB.RAPDIS TRANSLINGU (20:48)
[2023-03-15] MEDS: Levothyroxine Sodium 112 MCG TABLET PO (05:50)
[2023-03-15 08:50] VITALS: BP 107/58; PULSE 64; RESP 20; TEMP 36.3; O2SAT 97
[2023-03-15] MEDS: Cholecalciferol (Vitamin D3) 25 MCG TABLET PO (08:53)
[2023-03-15] MEDS: Sertraline HCL 100 MG TABLET 200 MG PO (08:53)
[2023-03-15] MEDS: Pravastatin Sodium 10 MG TABLET PO (08:54)
[2023-03-15] MEDS: Valsartan 160 MG TABLET PO (08:54)
[2023-03-15] MEDS: hydroCHLOROthiazide 25 MG TABLET PO (08:54)
--- NOTE | 2023-03-15 11:23 | P.PNPSI_ITS ---
Subjective Subjective Date of Service: 03/15/23 Reason For Visit: Paranoia Subjective Notes: Conditional Voluntary Interim History: The nursing staff reported the patient had been common but isolative in her room, she socialized with some of her peers and she slept well last night. Yesterday her called me and left a message stating that he wants to take her out of the hospital and take care of her since he has not seen any improvement. She has dementia and she scored 25/30 and scored 3.6 on the [place] test, Shasha explain the discrepancy and the need to start treating for dementia. On interview the patient reported that she is feeling fine no suicidal ideation, able to contract for safety, no side effects with changes in medications. She asked for her discharge. We discussed the start of Aricept to prevent progression of dementia. Today I am calling her and we will discuss discharge planning. Mental Status Exam Mental Status Exam Patient Appearance: Appropriate Patient Orientation: Person and Situation Level of Consciousness: Awake and Appropriate Patient Behavior: Guarded and Passive Mood Description: Withdrawn Affect Description: Constricted Patient Cognition Impaired: Yes Ability to Follow Directions: Good Speech Pattern: Clear Hallucinations: None Delusions: Not Present Thought Process: Distracted and Linear Thought Content: positive for [place], positive for Circumstantial and positive for Poverty of Content Judgement: Fair Diagnostics Vital Signs (24Hr): Vital Signs - 24 hr 03/14/23 18:00 03/15/23 08:50 Temperature 98.7 F Pulse Rate 60 64 Respiratory Rate 18 20 Blood Pressure 116/70 107/58 L Pulse Oximetry 96 97 Oxygen Delivery Method Room Air Room Air BMI result Body Mass Index 29.9 Labs 03/01/23 07:59 Medications Medications Current Medications Acetaminophen (Acetaminophen 325 Mg Tablet) 650 mg PO Q6H PRN PRN Reason: Headache/Pain Mild Scale (1-3) Last Admin: 03/09/23 20:57 Dose: 650 mg Al Hydroxide/Mg Hydroxide (Magnesium Hydrox/Alum Hydrox 30 Ml Oral.Susp) 30 ml PO Q6H PRN PRN Reason: Heartburn/Nausea Clonazepam (Clonazepam 0.125 Mg Tab.Rapdis) 0.5 mg PO BEDTIME [facility] Last Admin: 03/14/23 20:48 Dose: 0.5 mg Donepezil HCl (Donepezil Hcl 5 Mg Tablet) 5 mg PO BEDTIME [facility] Hydrochlorothiazide (Hydrochlorothiazide 25 Mg Tablet) 25 mg PO DAILY [facility]; Protocol Last Admin: 03/15/23 08:54 Dose: 25 mg Hydroxyzine HCl (Hydroxyzine Hcl 25 Mg Tablet) 25 mg PO Q6H PRN PRN Reason: Anxiety Last Admin: 03/04/23 17:07 Dose: 25 mg Levothyroxine Sodium (Levothyroxine Sodium 112 Mcg Tablet) 112 mcg PO DAILY@0600 [facility] Last Admin: 03/15/23 05:50 Dose: 112 mcg Loperamide HCl (Loperamide Hcl 2 Mg Capsule) 2 mg PO Q4H PRN PRN Reason: Diarrhea Last Admin: 03/14/23 16:29 Dose: 2 mg Magnesium Hydroxide (Milk Of Magnesia 30 Ml Oral.Susp) 30 ml PO DAILY PRN PRN Reason: Constipation Last Admin: 03/14/23 12:42 Dose: 30 ml Olanzapine (Olanzapine Odt 10 Mg Tab.Rapdis) 10 mg TRANSLINGU BEDTIME [facility] Last Admin: 03/14/23 20:48 Dose: 10 mg Polyethylene Glycol (Polyethylene Glycol 3350 17 Gm Powd.Pack) 17 gm PO BEDTIME [facility] Last Admin: 03/14/23 20:52 Dose: Not Given Pravastatin Sodium (Pravastatin Sodium 10 Mg Tablet) 10 mg PO DAILY [facility] Last Admin: 03/15/23 08:54 Dose: 10 mg Sertraline HCl (Sertraline Hcl 100 Mg Tablet) 200 mg PO DAILY [facility] Last Admin: 03/15/23 08:53 Dose: 200 mg Trazodone HCl (Trazodone Hcl 50 Mg Tablet) 50 mg PO BEDTIME MRX1 PRN PRN Reason: Insomnia Last Admin: 03/11/23 21:51 Dose: 50 mg Valsartan (Valsartan 160 Mg Tablet) 160 mg PO DAILY [facility]; Protocol Last Admin: 03/15/23 08:54 Dose: 160 mg Vitamin D (Cholecalciferol (Vitamin D3) 25 Mcg Tablet) 25 mcg PO DAILY [facility] Last Admin: 03/15/23 08:53 Dose: 25 mcg Allergies Allergies Allergy/AdvReac Type Severity Reaction Status Date / Time No Known Allergies Allergy Verified 02/28/23 14:57 Assessment & Plan Assessment & Plan (1) Dementia: Status: Acute Code(s): F03.90 - Unspecified dementia, unspecified severity, without behavioral disturbance, psychotic disturbance, mood disturbance, and anxiety (2) MDD (major depressive disorder), recurrent, severe, with psychosis: Status: Acute Code(s): F33.3 - Major depressive disorder, recurrent, severe with psychotic symptoms Plan The patient is an elderly female, , with a prior history of m ajor depressive disorder and dementia who was brought into the facility transfer from the emergency room of [facility] due to bizarre delusions, persecutory delusions and worsening of her depression since she has lost her provider. She she also has several medical comorbidities such as arthritis, cataracts, thyroid issues, hyperlipidemia and high blood pressure. Plan 1. Gather collateral information. 2. Continue with regular medications. 3. Medical workout. 4. Reassessment results. 5. 15 minutes checks. 6. Continue Zoloft 200 mg p.o. daily. 7. And MiraLax for constipation on March 14. 8. Seroquel was discontinued started on Zyprexa 10 mg p.o. q.h.s. to target psychotic symptoms with for improvement. At this moment no evidence of paranoia or disorganized behavior. Reason for continued inpatient stay Substantial Risk for: inability to function, rapid decompensation and med/psych decompensation Time Spent With Patient Time: Total time managing care of this patient today __20__ minutes.
[2023-03-15 20:07] VITALS: BP 133/71; PULSE 70; RESP 18; TEMP 36; O2SAT 95
[2023-03-15] MEDS: OLANZapine ODT 10 MG TAB.RAPDIS TRANSLINGU (20:15)
[2023-03-15] MEDS: Donepezil HCl 5 MG TABLET PO (20:15)
[2023-03-16 06:00] VITALS: BP 119/62; PULSE 68; RESP 16; TEMP 36.1; O2SAT 94
[2023-03-16] MEDS: Levothyroxine Sodium 112 MCG TABLET PO (06:13)
[2023-03-16] MEDS: Pravastatin Sodium 10 MG TABLET PO (08:11)
[2023-03-16] MEDS: hydroCHLOROthiazide 25 MG TABLET PO (08:11)
[2023-03-16] MEDS: Cholecalciferol (Vitamin D3) 25 MCG TABLET PO (08:11)
[2023-03-16] MEDS: Valsartan 160 MG TABLET PO (08:11)
[2023-03-16] MEDS: Sertraline HCL 100 MG TABLET 200 MG PO (08:11)
--- NOTE | 2023-03-16 08:12 | P.DS_ITS ---
DS: Providers Provider Date of Service: 03/16/23 Date of admission: 02/28/23 14:18 Date of discharge: 03/16/23 Primary care physician: Unknown Physician Attending physician on admission: Johny Rice Consults: 02/28/23 14:58 Consult to Hospitalist Routine Comment: Consulting Provider: Hospitalist Reason For Exam: Direct admission Attending physician on discharge: Johny Rice DS: Diagnosis Discharge Diagnosis (1) Dementia: Status: Acute (2) MDD (major depressive disorder), recurrent, severe, with psychosis: Status: Acute DS: Medications Discharge Medications Home Medications: Home Medications Medication Instructions Recorded Confirmed aripiprazole 5 mg tablet 5 mg PO BEDTIME 02/28/23 02/28/23 clonazepam 0.5 mg tablet (Klonopin) 0.5 mg PO BID 02/28/23 02/28/23 hydrochlorothiazide 25 mg tablet 25 mg PO DAILY 02/28/23 02/28/23 lithium carbonate 300 mg 600 mg PO BEDTIME 02/28/23 02/28/23 tablet,extended release quetiapine 100 mg tablet 100 mg PO BEDTIME 02/28/23 02/28/23 sertraline 100 mg tablet 150 mg PO DAILY 02/28/23 02/28/23 sertraline 50 mg tablet 50 mg PO QAM 02/28/23 02/28/23 trazodone 50 mg tablet 50 - 100 mg PO BEDTIME 02/28/23 02/28/23 Previous Rx's Medication Instructions Recorded acetaminophen 325 mg tablet 650 mg (2 x 325 mg) PO Q6H PRN 03/15/23 Headache/Pain Mild Scale (1-3) 30 days #60 tabs cholecalciferol (vitamin D3) 25 25 mcg PO DAILY 30 days #30 tabs 03/15/23 mcg (1,000 unit) tablet (Vitamin D3) clonazepam 0.125 mg disintegrating 0.5 mg (4 x 0.125 mg) PO BEDTIME 03/15/23 tablet 30 days #120 tabs donepezil 5 mg tablet 5 mg PO BEDTIME 30 days #30 tabs 03/15/23 levothyroxine 112 mcg tablet 112 mcg PO DAILY 30 days #30 tabs 03/15/23 meloxicam 15 mg tablet 15 mg PO DAILY 30 days #30 tabs 03/15/23 moxifloxacin 0.5 % eye drops 1 drp ophthalmic-Right TID 30 days 03/15/23 #5 mL polyethylene glycol 3350 17 gram 17 g PO BEDTIME 30 days #30 ea 03/15/23 oral powder packet pravastatin 10 mg tablet 10 mg PO DAILY 30 days #30 tabs 03/15/23 sertraline 100 mg tablet 200 mg (2 x 100 mg) PO DAILY 30 03/15/23 days #60 tabs trazodone 50 mg tablet 50 mg PO BEDTIME MRX1 PRN Insomnia 03/15/23 30 days #60 tabs valsartan 160 1 tab PO DAILY 30 days #30 tabs 03/15/23 mg-hydrochlorothiazide 25 mg tablet Mental Status Exam Mental Status Exam Patient Appearance: Well Grooomed and Appropriate Patient Orientation: Person, Place and Situation Level of Consciousness: Awake and Appropriate Patient Behavior: Guarded and Passive Mood Description: Withdrawn Affect Description: Constricted Patient Cognition Impaired: Yes Ability to Follow Directions: Good Speech Pattern: Clear Memory Description: Intact Hallucinations: None Delusions: Not Present Thought Process: Linear Thought Content: positive for [place] and positive for Circumstantial Judgement: Fair DS: Summary Hospital Course Hospital Course: The patient was initially admitted to the emergency room of another hospital out of our catchment area due to worsening of depression and psychotic symptoms elicited by paranoia, stating that she has to confess her crimes and being arrested, disorganized behavior and increased anxiety. She recently lost her regular provider since she moved to [place]. Please see the HPI note for further details. On admission, the patient was a very poor historian but her provide more details. Apparently she was admitted before in 2009 for an episode of depression that needed inpatient level of care. The patient has been taking Zoloft and her does have changed. We titrated sort of up to 200 mg p.o. daily to target depression. We kept Seroquel 100 mg p.o. q.h.s. to target psychotic symptoms. The patient stated that she was feeling better but she stayed most of the time in her room isolative. She disclosed paranoid delusions and disorganized thoughts so the team decided to change Seroquel to Zyprexa titrated up to 10 mg p.o. q.h.s. with for tolerability. We did several assessments while she was in the unit, her [place] test was 25/30 and her [place] test was particularly low on 3.6. This discrepancy was noticeable since her functionality has declined. We discussed at length risks, benefits, side-effects and alternatives and even though that she does not have full criteria for dementia at this point, she has mild cognitive impairment that impacts her functionality. We decided to start Aricept 5 mg p.o. q.h.s.. Psycho education into her condition was provided to her at the patient. The patient's psychotic symptoms were not evident, she was future oriented and she stated that she was feeling much better. Her appetite and sleep was good. Since there were no safety concerns discharge planning was discussed. The community mental health social worker arranged for continuation of care as an outpatient in her local community. Time spent discussing smoking cessation with patient: 3 to 10 minutes Status at Discharge Cognitive/behavioral status at discharge: Mildly impaired at baseline Functional status at discharge: independent ambulation Overall status at discharge: patient is back to baseline Time Spent with Patient Time attestation: Total time managing care of this patient today _45___ minutes. Time spent: Greater than 30 minutes Discharge Plan Discharge Anticipated Discharge Date/Time: 03/16/23 09:30 Patient Disposition: Home, Self-Care Discharge Diagnosis: Major depressive disorder recurrent episode severe. Neuro cognitive impairment Referrals: Dr. Tim Mireles - PCP [Other] - 03/22/23 10:45 am (Appointment: 03/22/2023 @ 10:45 - In-Office ) Dr. Sandra Cervantes - Psychiatrist [Other] - 04/06/23 11:00 am (Appointment is in office; arrive 15 minutes early. 04/06/2023 @ 11am ) [facility] General Neuropsychological Referral [Other] - 1 Week (Patient will call upon discharge, to schedule appointment. ) Physician,Unknown J [Primary Care Provider] - 1 Week Discharge Medications: New acetaminophen 325 mg Tablet 650 mg PO Q6H PRN (Reason: Headache/Pain Mild Scale (1-3)) 30 Days Qty: 60 0RF donepezil 5 mg Tablet 5 mg PO BEDTIME 30 Days Qty: 30 0RF clonazepam 0.125 mg Tablet,Disintegrating 0.5 mg PO BEDTIME 30 Days Qty: 120 0RF trazodone 50 mg Tablet 50 mg PO BEDTIME MRX1 PRN (Reason: Insomnia) 30 Days Qty: 60 0RF polyethylene glycol 3350 17 gram Powder In Packet 17 g PO BEDTIME 30 Days Qty: 30 0RF sertraline 100 mg Tablet 200 mg PO DAILY 30 Days Qty: 60 0RF olanzapine [Zyprexa] 10 mg tablet 10 mg PO BEDTIME Qty: 30 0RF Continued meloxicam 15 mg Tablet 15 mg PO DAILY 30 Days Qty: 30 0RF pravastatin 10 mg Tablet 10 mg PO DAILY 30 Days Qty: 30 0RF levothyroxine 112 mcg Tablet 112 mcg PO DAILY 30 Days Qty: 30 0RF valsartan-hydrochlorothiazide 160-25 mg tablet 1 tab PO DAILY 30 Days Qty: 30 0RF moxifloxacin 0.5 % drops 1 drp ophthalmic-Right TID 30 Days Qty: 5 0RF cholecalciferol (vitamin D3) [Vitamin D3] 25 mcg (1,000 unit) Tablet 25 mcg PO DAILY 30 Days Qty: 30 0RF Discontinued clonazepam [Klonopin] 0.5 mg Tablet 0.5 mg PO BID quetiapine 100 mg Tablet 100 mg PO BEDTIME hydrochlorothiazide 25 mg Tablet 25 mg PO DAILY trazodone 50 mg tablet 50 - 100 mg PO BEDTIME sertraline 100 mg tablet 150 mg PO DAILY sertraline 50 mg tablet 50 mg PO QAM aripiprazole 5 mg tablet 5 mg PO BEDTIME lithium carbonate 300 mg tablet extended release 600 mg PO BEDTIME Discharge Orders: Discharge Order (Routine); Ordered 03/16/23 Ordered By: Johny Rice Diet: Advance to usual diet Activity on Discharge: As tolerated Stand Alone Forms: Patient Portal Discharge page Care Plan Goals: Care plan goals achieved in this admission Health Concerns: Continue treatment with primary care physician in the community Plan of Treatment: Continue treatment in the community with outpatient psychiatric services. Assessment: The patient is an elderly female with a past history of major depressive disorder who was admitted for exacerbation of depression with psychotic symptoms elicited by paranoia, disorganized thought process and disorganized behavior. She was fully will workout at [facility] and there was no medical explanation of the change in mental status. It was clear that the patient had a mild cognitive impairment that improved with Aricept. Also her depression improved with increase of Zoloft to 200 mg p.o. daily and her psychotic symptoms resolved with Zyprexa titrated up to 10 mg p.o. q.h.s. with no side effects. At this moment, the patient is ready to be discharged back to the community and continuation services as an outpatient. No safety concerns elicited at this moment.
== END 2023-03-16 10:13 | disposition home or self-care (01) | DRG 885 ==
PROVIDERS: Admitting Provider Psychiatry & Neurology Psychiatry; Visit Provider Psychiatry & Neurology Psychiatry
DX: F33.3 Major depressive disorder, recurrent, severe with psychotic symptoms (principal); E89.0 Postprocedural hypothyroidism; I10 Essential (primary) hypertension; E78.5 Hyperlipidemia, unspecified; F03.90 Unspecified dementia, unspecified severity, without behavioral disturbance, psychotic disturbance, mood disturbance, and anxiety; H18.511 Endothelial corneal dystrophy, right eye; Z79.890 Hormone replacement therapy; Z79.899 Other long term (current) drug therapy
CPT/HCPCS: 36415; 80053; 80061

== ENCOUNTER → 2023-02-28 14:18 | Outpatient (BNV) | payer MEDICARE, SELFPAY | PROVIDERS: Admitting Provider Psychiatry & Neurology Psychiatry; Visit Provider Physician Assistant | DX: Z00.00 Encounter for general adult medical examination without abnormal findings (principal) | CPT/HCPCS: 99429 ==

== ENCOUNTER → 2023-02-28 14:18 | Outpatient (BNV) | payer MEDICARE, SELFPAY | PROVIDERS: Admitting Provider Psychiatry & Neurology Psychiatry; Visit Provider Psychiatry & Neurology Psychiatry | DX: F03.90 Unspecified dementia, unspecified severity, without behavioral disturbance, psychotic disturbance, mood disturbance, and anxiety (principal); F33.3 Major depressive disorder, recurrent, severe with psychotic symptoms | CPT/HCPCS: 99222; 99231; 99232; 99239; 99499 ==